=== PATIENT | male | born 1945 | race Caucasian/White ===

== ENCOUNTER 2019-12-03 16:44 | Emergency (ER) | payer MEDICARE, SELFPAY ==
[2019-12-03 16:44] VITALS: BP 163/97; PULSE 71; RESP 16; TEMP 36.2; O2SAT 98
[2019-12-03 16:45] VITALS: BP 163/97; PULSE 68; RESP 16; TEMP 36.2; O2SAT 99; BMI 26.1
--- NOTE | 2019-12-03 17:06 | EKG12_ITS ---
Test Reason : CP Blood Pressure : / mmHG Vent. Rate : 066 BPM Atrial Rate : 066 BPM P-R Int : 164 ms QRS Dur : 088 ms QT Int : 416 ms P-R-T Axes : 069 035 058 degrees QTc Int : 436 ms Sinus rhythm with occasional Premature ventricular complexes Otherwise normal ECG Confirmed by JUNIE COTTON, MARLEEN ([id number]), vice president compliance LIT VICENTE ([id number]) on 12/07/2019 2:45:34 PM Referred By: JENNIFER Confirmed By:EY ZAMAN MD
--- NOTE | 2019-12-03 17:13 | RAD_ITS ---
STUDY: X-RAY CHEST REASON FOR EXAM: Male, 74 years old. CHEST PAIN FOR 8 DAYS, INDIGESTION, C/O HYPERTENSION TECHNIQUE: Single AP portable view of the chest. COMPARISON: None. FINDINGS: The lungs are clear and expanded. There is no demonstrated pleural abnormality. Normal size heart. Normal mediastinum and micha. Normal visualized pulmonary arteries. Normal visualized aortic arch and descending thoracic aorta. Normal visualized thoracic spine. Normal visualized ribs, clavicles, and shoulders. There is no demonstrated abnormality of the visualized soft tissue structures of the upper abdomen. RAD/Chest 1 View (Portable) IMPRESSION: Normal x-ray examination of the chest. Electronically Signed: Jose Mcginnis MD at 17:28 EDT Tel , Service support ,
[2019-12-03 17:29] LABS: Absolute Lymphocyte Count 2.05 X10^3/uL (0.83-4.51); Absolute Neutrophil Count 5.7 X10^3/uL (2.0-7.7); Basophil# 0.04 X10^3/uL; Basophil% 0.4 % (0-1); Eosinophil# 0.35 X10^3/uL; Eosinophils% 3.9 % (0-5); Hematocrit 43.1 % (40-54); Hemoglobin 14.1 g/dL (13.0-16.5); Lymphocyte # 2.05 X10^3/ul (4.0); Lymphocyte % 22.8 % (19-41); Mean Corp Hgb Conc 32.7 g/dL (32-36); Mean Corpuscular Hgb 31.2 pg (27.0-32.0); Mean Corpuscular Volume 95.4 fL (80-94); Mean Platelet Vol. 9.3 fl (6.2-12.0); Monocyte# 0.86 X10^3/uL; Monocyte% 9.5 % (0-10); NRBC Flagged by Analyzer 0 % (0-5); Neutrophil # 5.66 X10^3/uL (2.7-7.7); Neutrophil % 62.8 % (47-70); Platelet Count 238 K/mm3 (150-450); RBC Distribution Width CV 13.1 % (11.6-14.6); RBC Distribution Width SD 45.9 fl (35.1-43.9); Red Blood Count 4.52 M/mm3 (4.6-6.2)
[2019-12-03] MEDS: Famotidine 200 MG/20 ML MDV 20 MG in 0.9% Normal Saline (Pres. free 8 ML 300 MG IV (17:30)
[2019-12-03 17:44] VITALS: BP 140/77; PULSE 60; RESP 21; O2SAT 96
[2019-12-03 17:48] LABS: Anion Gap 5 (5-15); BUN 18 mg/dL (7-18); BUN/Creat Ratio 14.5 RATIO (10-20); Calcium,Total 9.4 mg/dL (8.5-10.1); Chloride 102 mmol/L (98-107); Creatinine, Serum 1.24 mg/dL (0.70-1.30); EST Glomerular Filtration Rate 60 mL/min (>60); Est Glom Filt Rate - Afr Amer 73 mL/min (>60); Glucose 100 mg/dL (74-106); Potassium 3.8 mmol/L (3.5-5.1); Sodium Level 136 mmol/L (136-145)
[2019-12-03] MEDS: Mag Hydrox/Al Hydrox/Simeth 30 ML UDC PO (18:23)
--- NOTE | 2019-12-03 19:34 | ED.VIS.GEN ---
History of Present Illness Chief Complaint: Chest Pain Informant: Patient Onset: Days - 8 Narrative: Patient presents 8 days of indigestion symptoms. Waxing and waning. Is constant. Only mild with a 2. Today noted elevated blood pressures stomach 160s. He is on medications. Denies headache visual changes. Denies cough he denies nausea vomiting. Denies any urinary symptoms. No history of stress test. History of hypertension, mild hypercholesterolemia, on Wellbutrin to quit smoking. Prior similar symptoms: No Past Medical History - Allergies and Home Meds Allergies/Adverse Reactions: Allergies No Known Allergies Allergy (Verified 12/03/19 16:48) Primary Care Physician: Felton Benitez MD [Primary Care Provider] - 3-5 Days Smoking Status: Former smoker Review of Systems General: Denies: Chills, Fever, Sweats Eyes: Denies: Visual changes - bilaterally, Diplopia ENT: Denies: Rhinorrhea, Sore throat Cardiovascular: Reports: Chest pain. Denies: Palpitations Respiratory: Denies: Dyspnea, Cough, Dyspnea on exertion Gastrointestinal: Denies: Abdominal pain, Nausea, Vomiting, Diarrhea, Melena, Hematochezia Genitourinary: Denies: Dysuria, Hematuria, Frequency Musculoskeletal: Denies: Back pain, Extremity Pain Skin: Denies: Rash, Wounds Neurological: Denies: Headache, Weakness, Numbness Physical Exam Vital Signs/Narrative: Vital Signs Temp Pulse Resp BP Pulse Ox 12/03/19 17:44 60 21 H 140/77 H 96 12/03/19 16:45 97.1 F L 68 16 163/97 H 99 12/03/19 16:44 97.1 F L 71 16 163/97 H 98 Inital Vital Signs reviewed: Yes General: Well nourished, Well developed, No Acute Distress Head: Normocephalic, Atraumatic Eyes: Perrl, EOMI ENT: Moist mucous membranes, No rhinorrhea Neck: Supple, Nontender Cardiovascular: Regular rate, Regular rhythm, No murmurs Respiratory: No distress, CTA bilaterally, Chest nontender Abdomen: Soft, Nontender, Nondistended, Normal bowel sounds Back: Nontender, Normal Inspection Extremities: Nontender, No edema Skin: Normal color, No rash Neurological: Alert, Oriented x3, Cranial nerves II-XII grossly intact, Normal Strength, Normal Sensation Psychological: Normal affect, Normal Mood Diagnostic/Tx/Re-eval Clinical Impression(s) from Imaging Studies Chest X-Ray 12/03/19 17:13 IMPRESSION: Normal x-ray examination of the chest. Electronically Signed: Jose Mcginnis MD at 17:28 EDT Tel , Service support , Abnormal Lab Results 12/03/19 12/03/19 16:55 16:55 WBC 9.0 RBC 4.52 L Hgb 14.1 Hct 43.1 MCV 95.4 H MCH 31.2 MCHC 32.7 RDW Std Deviation 45.9 H RDW Coeff of Isha 13.1 Plt Count 238 MPV 9.3 Immature Gran % (Auto) 0.600 Neut % (Auto) 62.8 Lymph % (Auto) 22.8 Leake % (Auto) 9.5 Eos % (Auto) 3.9 Baso % (Auto) 0.4 Absolute Neuts (auto) 5.7 Absolute Lymphs (auto) 2.05 Nucleated RBC % 0 Sodium 136 Potassium 3.8 Chloride 102 Carbon Dioxide 29.0 Anion Gap 5 BUN 18 Creatinine 1.24 Estim Creat Clear Calc 49.80 Est GFR (MDRD) Af Amer 73 Est GFR (MDRD) Non-Af 60 BUN/Creatinine Ratio 14.5 Glucose 100 Calcium 9.4 Troponin I < 0.015 - EKG Initial EKG Interpretation: Sinus Rhythm - Sinus rate of 66, no ST or T wave changes. Occasional PVCs. - Medical Decision Making Patient EKG with intermittent PVCs. No acute changes. Cardiac work-up negative. With persistent symptoms for 8 days negative troponin less likely cardiac in nature. Was given GI cocktail with some improvement of symptoms. Blood pressure without intervention went down to 140s over 70s which is his typical from his report. He will be placed on a PPI. Discussed with patient follow-up with his PCP for outpatient testing and reevaluation his blood pressure. Signs and symptom discussed return. All questions were answered. ED Disposition - Plan for ED Patient: Disposition: Home or Assisted Living Diagnosis: Chest pain, Elevated blood pressure reading in office with diagnosis of hypertension Instructions: ED Chest Pain Atypical Unkn Cause Prescriptions: Omeprazole 40 mg PO DAILY #30 capsule. Prescription Printed Referrals: Felton Benitez MD [Primary Care Provider] - 3-5 Days Additional Instructions: BP 140/77 without intervention.
[2019-12-03 19:35] VITALS: BP 161/74; PULSE 56; RESP 15; O2SAT 98
== END 2019-12-03 19:48 | disposition home or self-care (01) ==
PROVIDERS: Emergency Provider Emergency Medicine; PCP Family Medicine
DX: R07.9 Chest pain, unspecified (principal); I10 Essential (primary) hypertension; E78.00 Pure hypercholesterolemia, unspecified; Z87.891 Personal history of nicotine dependence
CPT/HCPCS: 71045; 80048; 84484; 85025; 93005; 96365; 99285; A4216; J3490

== ENCOUNTER 2020-02-06 13:58 | Emergency (ER) | payer MEDICARE, SELFPAY ==
[2020-02-06 13:59] VITALS: BP 128/75; PULSE 81; RESP 16; TEMP 36.4; O2SAT 99; BMI 26.8
--- NOTE | 2020-02-06 14:18 | RAD_ITS ---
STUDY: X-RAY CHEST REASON FOR EXAM: Male, 74 years old. WEAKNESS, TIREDNESS TECHNIQUE: AP upright portable view. COMPARISON: 12/02/2018. FINDINGS: Equivocal minimal interstitial infiltrate in the left mid peripheral lung zone and in the right lower lobe. Oblique linear scarring in the left lower lobe. No confluent infiltrates. There is no demonstrated pleural abnormality. Normal size heart. Normal mediastinum and micha. Normal visualized pulmonary arteries. Normal visualized aortic arch and descending thoracic aorta. Normal visualized thoracic spine. Normal visualized ribs, clavicles, and shoulders. There is no demonstrated abnormality of the visualized soft tissue structures of the upper abdomen. RAD/Chest 1 View (Portable) IMPRESSION: Equivocal minimal interstitial infiltrate in the left midlung and in the right lower lobe. HRCT chest will help clarify if interstitial pneumonitis including Covid 19 is a clinical consideration. Electronically Signed: Boaz Flores MD at 15:27 EST , Service support ,
--- NOTE | 2020-02-06 14:18 | EKG12_ITS ---
Test Reason : FATIGUE Blood Pressure : / mmHG Vent. Rate : 060 BPM Atrial Rate : 060 BPM P-R Int : 158 ms QRS Dur : 086 ms QT Int : 418 ms P-R-T Axes : 059 019 048 degrees QTc Int : 418 ms Normal sinus rhythm Normal ECG Confirmed by GAEL COTTON, JOSIE ([id number]), international editorial producer LISA MILAN ([id number]) on 02/08/2020 1:28:37 PM Referred By: BB Confirmed By:JOSIE MAYO MD
--- NOTE | 2020-02-06 14:19 | ED.DCSUM_ITS ---
History of Present Illness Chief Complaint: Fatigue Informant: Patient Onset: Days - 4 Context: Gradual Onset Timing: Continuous Quality: fatigue, sleeping a lot Location: all over Current Severity: Moderate Maximum Severity: Moderate Worsened by: n/a Relieved by: n/a Associated Symptoms: none currently Narrative: Patient states for the last 4 days he has been very tired, sleeping a lot. He states he is up for an hour or 2 after sleeping and then he needs to go back to bed. He denies any other acute symptoms but states that he just got over bronchitis. This, in context of major surge of COVID-19 pandemic in this area and stay recently. He states he did not see anyone for that or get tested but his symptoms are better now. They consisted of nonproductive cough, rhinorrhea, mild sore throat. He had no dyspnea, fevers, chills, myalgias, headaches. No GI symptoms. Lives with his who did not get sick. She recently had an outpatient surgery and tested negative for Covid this past month while asymptomatic. He has been compliant with his medications and is not a diabetic. He denies any trouble speaking, trouble understanding others, confusion, or peripheral neurologic symptoms. He has been urinating a little less, but when he goes he has no trouble, but then admits that he has been drinking a lot less since he has been sleeping mostly. - Past Medical History (1) Hypertension Status: Chronic (2) Hyperlipidemia Status: Chronic Past Medical History - Allergies and Home Meds Allergies/Adverse Reactions: Allergies No Known Allergies Allergy (Verified 12/03/19 16:48) Primary Care Physician: Felton Benitez MD [Primary Care Provider] - Lives: Spouse/ Significant Other Smoking Status: Former smoker - Stopped smoking about 3 months ago and started Wellbutrin at that time for this reason Review of Systems General: Reports: Malaise. Denies: Chills, Fever, Sweats Eyes: Denies: Visual changes - bilaterally, Diplopia ENT: Denies: Bilateral ear pain, Rhinorrhea, Sore throat - And no oral pain currently Cardiovascular: Denies: Chest pain, Palpitations Respiratory: Denies: Dyspnea, Cough, Dyspnea on exertion Gastrointestinal: Denies: Abdominal pain, Nausea, Vomiting, Diarrhea, Melena, Hematochezia Genitourinary: Denies: Dysuria, Hematuria, Frequency Musculoskeletal: Denies: Myalgias, Neck pain, Back pain, Swelling, Extremity Pain Skin: Denies: Rash, Wounds Neurological: Denies: Headache, Weakness, Numbness Endocrine: Denies: Polyuria, Polydipsia, Heat intolerance, Cold intolerance Physical Exam Vital Signs/Narrative: Vital Signs Temp Pulse Resp BP Pulse Ox 02/06/20 13:59 97.6 F L 81 16 128/75 H 99 Inital Vital Signs reviewed: Yes General: Well nourished, Well developed, No Acute Distress Head: Normocephalic, Atraumatic Eyes: Perrl, EOMI ENT: Moist mucous membranes, No rhinorrhea, - - Dark discoloration posterior half of tongue, nontender Neck: Supple, Nontender, No lymphadenopathy Cardiovascular: Regular rate, Regular rhythm, No murmurs Respiratory: No distress, CTA bilaterally, Chest nontender Abdomen: Soft, Nontender, Nondistended, Normal bowel sounds Back: Nontender, Normal Inspection. Negative for: CVA tenderness Extremities: Nontender, No edema. Negative for: Calf Tenderness Skin: Normal color, No rash, No Trauma Neurological: Alert, Oriented x3, Cranial nerves II-XII grossly intact, Normal Strength, Normal Sensation Psychological: Normal affect, Normal Mood Diagnostic/Tx/Re-eval Impressions Chest X-Ray 02/06/20 14:18 IMPRESSION: Equivocal minimal interstitial infiltrate in the left midlung and in the right lower lobe. HRCT chest will help clarify if interstitial pneumonitis including Covid 19 is a clinical consideration. Electronically Signed: Boaz Flores MD at 15:27 EST , Service support , 02/06/20 14:18 Chest 1 View (Portable) [RAD] Stat 02/06/20 15:00 Mucosa - Nasopharyngeal SARS-CoV-2 Antigen (Rapid) - Final SARS-CoV-2 (COVID 19) Laboratory Results 02/06/20 02/06/20 02/06/20 14:24 14:50 14:50 WBC 6.1 RBC 4.22 L Hgb 13.1 Hct 40.1 MCV 95.0 H MCH 31.0 MCHC 32.7 RDW Std Deviation 47.5 H RDW Coeff of Isha 13.7 Plt Count 154 MPV 10.1 Immature Gran % (Auto) 0.800 Neut % (Auto) 67.5 Lymph % (Auto) 18.8 L [place] % (Auto) 12.4 H Eos % (Auto) 0.3 Baso % (Auto) 0.2 Absolute Neuts (auto) 4.1 Absolute Lymphs (auto) 1.14 Nucleated RBC % 0 Sodium 136 Potassium 3.5 Chloride 100 Carbon Dioxide 31.0 Anion Gap 5 BUN 21 H Creatinine 1.26 Estim Creat Clear Calc 49.01 Est GFR (MDRD) Af Amer 72 Est GFR (MDRD) Non-Af 59 L BUN/Creatinine Ratio 16.7 Glucose 113 H Calcium 8.1 L Total Bilirubin 0.40 AST 33 ALT 39 Alkaline Phosphatase 66 Troponin I 0.030 Total Protein 7.3 Albumin 3.1 L Globulin 4.2 Albumin/Globulin Ratio 0.7 L TSH 0.79 COVID-19 ([facility]) Cancelled Microbiology 02/06/20 15:00 Mucosa - Nasopharyngeal SARS-CoV-2 Antigen (Rapid) - Final + SARS-CoV-2 (COVID 19) - Rhythm Strip Rhythm Strip: Sinus Rhythm Rate: 60 Ectopy: None - EKG Initial EKG Interpretation: Sinus Rhythm, No Acute Injury Pattern - Medical Decision Making Patient tested positive for Covid. States he started having cough 5 days ago but it really has not been bad in the past 2 days when I asked him to clarify the timing. His x-ray shows suspicion for early infiltrates in the bases. Given that he tested positive for Covid, I do not think he needs a CT of the chest to further discern the details. Furthermore, his vital signs are normal and he is not hypoxic, even with ambulation around the room. He is okay going home and getting around all right. The hospital has recently received doses of COVID-19 monoclonal antibody for outpatient infusion, the first infusions are scheduled to start 2 days from now on Saturday. He meets criteria, therefore is referred and he is interested in that. I will also send him home on a Z-Santiago to cover for the possibility of bacterial superinfection. He is comfortable with this overall plan and we discussed reasons to return. ED Disposition - Plan for ED Patient: Disposition: Home or Assisted Living Diagnosis: Pneumonia due to COVID-19 virus Instructions: Coronavirus Disease 2019 (COVID-19): Overview, Coronavirus Disease 2019 (COVID-19): Caring for Yourself or Others Referrals: Felton Benitez MD [Primary Care Provider] - Additional Instructions: See attached COVID-19 monoclonal antibody instructions.
[2020-02-06] MEDS: 0.9% Normal Saline 1,000 ML 150 ML IV (14:59)
[2020-02-06 15:14] VITALS: BP 125/67; PULSE 62; RESP 14; TEMP 36.6; O2SAT 98
[2020-02-06 15:30] LABS: Absolute Lymphocyte Count 1.14 X10^3/uL (0.83-4.51); Absolute Neutrophil Count 4.1 X10^3/uL (2.0-7.7); Basophil# 0.01 X10^3/uL; Basophil% 0.2 % (0-1); Eosinophil# 0.02 X10^3/uL; Eosinophils% 0.3 % (0-5); Hematocrit 40.1 % (40-54); Hemoglobin 13.1 g/dL (13.0-16.5); Lymphocyte # 1.14 X10^3/ul (4.0); Lymphocyte % 18.8 % (19-41); Mean Corp Hgb Conc 32.7 g/dL (32-36); Mean Platelet Vol. 10.1 fl (6.2-12.0); Monocyte# 0.75 X10^3/uL; Monocyte% 12.4 % (0-10); NRBC Flagged by Analyzer 0 % (0-5); Neutrophil % 67.5 % (47-70); Platelet Count 154 K/mm3 (150-450); RBC Distribution Width CV 13.7 % (11.6-14.6); RBC Distribution Width SD 47.5 fl (35.1-43.9); Red Blood Count 4.22 M/mm3 (4.6-6.2); White Blood Count 6.1 K/mm3 (4.4-11.0)
[2020-02-06 15:38] LABS: ALB/GLOB Ratio 0.7 RATIO (0.9-2.4); AST(SGOT) 33 U/L (15-37); Alanine Aminotransfer ALT/SGPT 39 U/L (16-61); Albumin, Serum 3.1 g/dL (3.2-5.0); Alkaline Phosphatase 66 U/L (45-117); Anion Gap 5 (5-15); BUN 21 mg/dL (7-18); BUN/Creat Ratio 16.7 RATIO (10-20); Calcium,Total 8.1 mg/dL (8.5-10.1); Chloride 100 mmol/L (98-107); Creatinine, Serum 1.26 mg/dL (0.70-1.30); EST Glomerular Filtration Rate 59 mL/min (>60); Est Glom Filt Rate - Afr Amer 72 mL/min (>60); Estimated Creatinine Clearance 49.01 ml/min; Globulin 4.2 g/dL (2.2-4.2); Glucose 113 mg/dL (74-106); Potassium 3.5 mmol/L (3.5-5.1); Protein, Total 7.3 g/dL (6.4-8.2); Sodium Level 136 mmol/L (136-145); Thyroid Stim Hormone (TSH) 0.79 uIU/mL (0.358-3.74)
[2020-02-06 16:17] VITALS: BP 127/70; PULSE 54; PULSE 55; RESP 18; TEMP 36.6; O2SAT 95
[2020-02-06 16:21] LABS: Mucous, Urine 0 SEEN /hpf (<or=2+); Red Blood Cells-Urine 0 SEEN /hpf (0-5); Squamous Epithelial Cells - UA 0 SEEN /hpf (0-5); White Blood Cells 0 SEEN /hpf (0-5)
[2020-02-06 16:22] LABS: Color, Urine Yellow (Yellow); Glucose, Dipstick Normal (Normal); Ketone-Dipstick Negative (Negative); Leukocyte Esterase-Dipstick Negative /ul (Negative); Nitrite-Dipstick Negative (Negative); Occult Blood-Urine 10 /ul (Negative); Protein-Dipstick 15 mg/dl (Negative); Specific Gravity, Urine 1.015 (1.002-1.030); Urine Bilirubin Dipstick Negative (Negative); Urine Clarity Clear (Clear); Urine Urobilinogen Normal (Normal)
[2020-02-06 16:36] LABS: Bacteria RARE /hpf (None Seen)
[2020-02-06 17:08] VITALS: BP 129/68; PULSE 59; RESP 15; TEMP 36.4; O2SAT 96
== END 2020-02-06 17:18 | disposition home or self-care (01) ==
PROVIDERS: Emergency Provider Emergency Medicine; PCP Family Medicine
DX: J12.89 Other viral pneumonia (principal); U07.1 COVID-19; E78.5 Hyperlipidemia, unspecified; I10 Essential (primary) hypertension; Z87.891 Personal history of nicotine dependence
CPT/HCPCS: 71045; 80053; 81001; 84443; 84484; 85025; 87426; 93005; 99285

== ENCOUNTER 2020-02-09 12:06 | Outpatient (CLI) | payer MEDICARE, SELFPAY ==
[2020-02-09 12:25] VITALS: BP 132/61; PULSE 67; RESP 28; TEMP 37.2; O2SAT 95; BMI 26.0
[2020-02-09 13:19] VITALS: BP 103/55; PULSE 59; RESP 24; TEMP 37.6; O2SAT 96
[2020-02-09 13:49] VITALS: BP 130/66; PULSE 67; RESP 20; TEMP 37.4; O2SAT 95
[2020-02-09 14:19] VITALS: BP 140/59; PULSE 94; RESP 20; TEMP 37.7; O2SAT 97
[2020-02-09 14:50] VITALS: BP 120/63; PULSE 71; RESP 20; TEMP 38.1; O2SAT 96
== END 2020-02-09 15:05 | disposition home or self-care (01) ==
LOC: MS2OUT 12:07 → MS2 12:10
PROVIDERS: PCP Family Medicine; Referring Provider Nurse Practitioner Acute Care; Visit Provider Nurse Practitioner Acute Care
DX: U07.1 COVID-19 (principal)
CPT/HCPCS: 96365; J7050; M0239; Q0239

== ENCOUNTER 2020-02-11 12:23 | Inpatient (IN) | payer MEDICARE, SELFPAY ==
[2020-02-11] VITALS (12 sets, daily range): BP systolic 121–146; BP diastolic 65–95; PULSE 54–72; RESP 16–30; TEMP 36.2–37.1; O2SAT 87–96; BMI 25.4; BMI 25.2
--- NOTE | 2020-02-11 12:38 | EKG12_ITS ---
Test Reason : SOB Blood Pressure : / mmHG Vent. Rate : 062 BPM Atrial Rate : 062 BPM P-R Int : 158 ms QRS Dur : 090 ms QT Int : 464 ms P-R-T Axes : 065 039 261 degrees QTc Int : 470 ms Normal sinus rhythm Nonspecific T wave abnormality Abnormal ECG Confirmed by LILLIANA COTTON, BERE ([id number]), digital editor LIT VICENTE ([id number]) on 02/12/2020 2:12:06 PM Referred By: HECTOR Confirmed By:BERE TIJERINA MD
--- NOTE | 2020-02-11 13:07 | ED.VIS.GEN ---
History of Present Illness Chief Complaint: Shortness of Breath Informant: Patient Narrative: Patient is a 74-year-old male with a past medical history of hypertension, hyperlipidemia who presents to the emergency department for shortness of breath and hypoxia. He was diagnosed with coronavirus approximately 2 weeks ago. He states he does have a home pulse oximeter which has been reading in the low to mid 80s since yesterday. Exerting himself does make him feel winded. No associated chest pain. No nausea/vomiting or diarrhea. He has been coughing. He denies any fevers or chills. No headache. No leg swelling or calf pain. He states he was put on antibiotic at the initial onset of symptoms otherwise has not done any other treatment. He has a former smoking history and quit approximately 12 years ago. Past Medical History - Allergies and Home Meds Allergies/Adverse Reactions: Allergies No Known Allergies Allergy (Verified 02/11/20 12:25) Prior records reviewed: Yes Smoking Status: Former smoker Review of Systems All systems negative except as indicated General: Denies: Chills, Fever, Sweats Eyes: Denies: Visual changes - bilaterally, Diplopia ENT: Denies: Rhinorrhea, Sore throat Cardiovascular: Denies: Chest pain, Palpitations Respiratory: Reports: Dyspnea, Cough, Dyspnea on exertion. Denies: Sputum Gastrointestinal: Denies: Abdominal pain, Nausea, Vomiting, Diarrhea Genitourinary: Denies: Dysuria, Hematuria, Frequency Musculoskeletal: Denies: Back pain, Extremity Pain Skin: Denies: Rash, Wounds Neurological: Denies: Headache, Weakness, Numbness Physical Exam Vital Signs/Narrative: Vital Signs Temp Pulse Resp BP Pulse Ox 02/11/20 12:23 97.2 F L 60 30 H 121/95 H 87 General: Well nourished, Well developed, No Acute Distress Head: Normocephalic, Atraumatic Eyes: Perrl, EOMI ENT: Moist mucous membranes, No rhinorrhea Neck: Supple, Nontender Cardiovascular: Regular rate, Regular rhythm, No murmurs Respiratory: No distress, CTA bilaterally, Chest nontender Abdomen: Soft, Nontender, Nondistended, Normal bowel sounds Back: Nontender, Normal Inspection Extremities: Nontender, No edema. Negative for: Calf Tenderness Skin: Normal color, No rash Neurological: Alert, Oriented x3, Cranial nerves II-XII grossly intact, Normal Strength, Normal Sensation Psychological: Normal affect, Normal Mood Diagnostic/Tx/Re-eval Chest X-Ray - ED: - - Single view chest x-ray interpreted by myself. He has patchy opacifications throughout lung bhagat bilaterally. Normal cardiac silhouette. Normal mediastinum. Agree with radiologist interpretation. - EKG Initial EKG Interpretation: - - Rate of 62 bpm normal sinus rhythm. Normal intervals. Normal axis. No significant ST elevations or depressions. No T wave abnormalities. There is baseline artifact present. - Medical Decision Making Patient presents to the ED for shortness of breath with exerting himself. He is coronavirus positive. He is satting 87% on room air during my examination but does not appear in acute distress. EKG, chest x-ray basic lab work being obtained. Patient's lab work did not reveal any significant acute abnormality. Chest x-ray significant for patchy consolidations consistent with coronavirus. D-dimer was requested by hospitalist and was elevated. That time CTA of the chest was performed. This did not reveal any evidence of pulmonary embolism. Given the fact he gets hypoxic especially when ambulating will bring him to the hospital for further evaluation and management. He understands and is agreeable this plan. He is given a dose of Decadron. He otherwise has been stable throughout ED stay. ED Disposition - Plan for ED Patient: Disposition: Acute Care Hospital [facility] Diagnosis: Pneumonia due to COVID-19 virus, Hypoxia
[2020-02-11 13:08] LABS: Absolute Lymphocyte Count 0.94 X10^3/uL (0.83-4.51); Absolute Neutrophil Count 7.3 X10^3/uL (2.0-7.7); Basophil# 0.02 X10^3/uL; Basophil% 0.2 % (0-1); Eosinophil# 0.02 X10^3/uL; Eosinophils% 0.2 % (0-5); Hematocrit 38.1 % (40-54); Hemoglobin 12.6 g/dL (13.0-16.5); Lymphocyte # 0.94 X10^3/ul (4.0); Lymphocyte % 10.6 % (19-41); Mean Corp Hgb Conc 33.1 g/dL (32-36); Mean Corpuscular Hgb 30.7 pg (27.0-32.0); Mean Corpuscular Volume 92.9 fL (80-94); Mean Platelet Vol. 9.7 fl (6.2-12.0); Monocyte# 0.56 X10^3/uL; Monocyte% 6.3 % (0-10); NRBC Flagged by Analyzer 0 % (0-5); Neutrophil # 7.26 X10^3/uL (2.7-7.7); Neutrophil % 81.9 % (47-70); Platelet Count 213 K/mm3 (150-450); RBC Distribution Width CV 13.7 % (11.6-14.6); RBC Distribution Width SD 46.7 fl (35.1-43.9); White Blood Count 8.9 K/mm3 (4.4-11.0)
--- NOTE | 2020-02-11 13:20 | RAD_ITS ---
STUDY: X-RAY CHEST REASON FOR EXAM: Male, 74 years old. HYPOXIA, COVID + TECHNIQUE: Single AP portable view of the chest. COMPARISON: Comparison is made with prior study dated 02/06/2020. FINDINGS: EKG electrodes are seen. There is evidence of new patchy infiltrates in the peripheral distribution preferentially involving both lungs worse in the right upper lobe. There is no demonstrated pleural abnormality. Normal size heart. Normal mediastinum and micha. Normal visualized pulmonary arteries. There is atherosclerotic tortuosity of the aortic arch and descending thoracic aorta. Normal visualized thoracic spine. Normal visualized ribs, clavicles, and shoulders. There is no demonstrated abnormality of the visualized soft tissue structures of the upper abdomen. RAD/Chest 1 View (Portable) IMPRESSION: New bilateral pulmonary infiltrates in a preferential peripheral distribution. Follow-up is recommended. Electronically Signed: Richar Parra, at 13:34 EST , Service support ,
[2020-02-11 13:25] LABS: AST(SGOT) 59 U/L (15-37); Alanine Aminotransfer ALT/SGPT 36 U/L (16-61); Albumin, Serum 2.5 g/dL (3.2-5.0); Alkaline Phosphatase 62 U/L (45-117); Anion Gap 6 (5-15); BUN 23 mg/dL (7-18); BUN/Creat Ratio 20.5 RATIO (10-20); Bilirubin, Direct 0.22 mg/dL (0.00-0.30); Calcium,Total 8.1 mg/dL (8.5-10.1); Chloride 101 mmol/L (98-107); Creatinine, Serum 1.12 mg/dL (0.70-1.30); EST Glomerular Filtration Rate 68 mL/min (>60); Est Glom Filt Rate - Afr Amer 82 mL/min (>60); Estimated Creatinine Clearance 55.13 ml/min; Globulin 4.8 g/dL (2.2-4.2); Glucose 94 mg/dL (74-106); Potassium 2.8 mmol/L (3.5-5.1); Protein, Total 7.3 g/dL (6.4-8.2); Sodium Level 137 mmol/L (136-145)
[2020-02-11 13:44] LABS: Magnesium 2.3 mg/dL (1.6-2.6)
--- NOTE | 2020-02-11 14:46 | PCM.HP.STD ---
Problem List (1) Hypertension Status: Chronic Qualifiers: Hypertension type: essential hypertension Qualified Code(s): I10 - Essential (primary) hypertension (2) Hyperlipidemia Status: Chronic Qualifiers: Hyperlipidemia type: unspecified Qualified Code(s): E78.5 - Hyperlipidemia, unspecified (3) Pneumonia due to COVID-19 virus Status: Acute (4) Hypoxia Status: Acute History of Present Illness Date of Admission: 02/11/20 Chief Complaint: SOB - worsening over 1 day The patient is a 74 year old M with past medical history of hypertension, hyperlipidemia who comes in with progressive shortness of breath and low reading on his pulse oximeter noted today. Patient stated that his symptoms started around 02/01/20. He was seen in the ED on 02/06/20 and tested positive with a rapid antigen. He was seen in the outpatient on 02/08/20 and received monoclonal antibody infusion. He however became more short of breath over the last couple of days and he noted his pulse ox was slightly in the 80s. He came to the emergency room at the urging of his family. He denied any chest pain or dizziness or palpitations or fever or chills. His vital signs ED showed temperature of 97.2F, heart rate 60, blood pressure 121/95, respiratory rate was 30, SPO2 was 87% on room air, this improved to 94% on 2 L of oxygen. WBC count 8.9, hemoglobin 12.6, platelet count was 213, D-dimer was 1.06, potassium was 2.8, sodium 137, chloride 101, bicarbonate 30, BUN 23, creatinine 1.12, magnesium is 2.2, LFTs unremarkable, procalcitonin 0.32. Past Medical History Past Medical History (Chronic Problems): Chronic Problems Hypertension (Chronic) Hyperlipidemia (Chronic) Allergies No Known Allergies Allergy (Verified 02/11/20 12:25) Home Medications: Ambulatory Orders Medication Instructions Recorded Losartan/Hydrochlorothiazide 1 tab PO DAILY 12/03/19 [Losartan-Hctz 100-25 mg Tab] [place]-3 Acid Ethyl Esters 1 gm PO TID 12/03/19 Rosuvastatin Calcium 20 mg PO QHS 12/03/19 buPROPion SR [Wellbutrin SR (150mg 150 mg PO BID 12/03/19 tablets)] Ascorbic Acid [Vitamin C] 500 mg PO DAILY 02/11/20 Cholecalciferol (Vitamin D3) 1,000 unit PO DAILY 02/11/20 [Vitamin D3] Vitamin E 400 unit PO DAILY 02/11/20 Surgical History: herniorrhaphy Psychiatric History: Anxiety, Depression Lives: Spouse/ Significant Other Smoking Status: Former smoker Tobacco Use: Non-smoker Alcohol: None Drugs: None - *Family History Maternal History Items: Hypertension Paternal History Items: - - arthritis Review of Systems Constitutional: Reports: Malaise, Weakness, Fatigue. Denies: Anorexia, Chills, Fever, Weight Change Eyes: Denies: Blurred vision, Cataracts, Conjunctivae Inflammation, Pain, Redness, Vision Change HEENT: Denies: Difficulty Hearing, Difficulty Swallowing, Head Aches, Hearing Changes, Sinus Congestion, Sinus Drainage Cardiovascular: Reports: Light Headedness. Denies: Chest Pain, Claudication, Orthopnea, Palpitations, Paroxysmal Noc. Dyspnea Respiratory: Reports: Cough, Shortness of Breath, Shortness of breath at rest, Shortness of breath upon exertion. Denies: Hemoptysis, Sputum production Gastrointestinal: Denies: Abdominal Pain, Constipation, Hematemesis, Hematochezia, Nausea, Vomiting Genitourinary: Denies: Dysuria, Frequency, Incontinence, Nocturia Musculoskeletal: Denies: Joint Pain, Joint stiffness, Joint swelling, Joint Tenderness Skin: Denies: Pruritis, Rash, Wounds Neurological: Denies: Difficulty swallowing, Focal weakness, Numbness, Tingling Psychiatric: Denies: Anxiety, Depression, Homicidal Ideations, Suicidal Ideations Hematologic/ Lymphatic: Denies: Easy Bruising, Easy Bleeding VTE Information - Inpt Only VTE Present on Admission: No VTE Pharm Prophylaxis ordered?: Yes Patient Problems: Active and Suspected Problems Pneumonia due to COVID-19 virus (Acute) Hypoxia (Acute) - Physical Exam Vitals/I&O's: Vital Signs Temp Pulse Resp BP Pulse Ox 97.2 F L 60 20 H 136/76 H 95 02/11/20 12:23 02/11/20 13:54 02/11/20 13:54 02/11/20 13:54 02/11/20 13:54 Oxygen Flow Rate (L/min) 2.5 Oxygen Delivery Method Nasal Cannula Weight: 76.1 kg Body Mass Index (BMI) 25.4 General: Alert, Oriented x3, Cooperative, No apparent distress, - - on 2L oxygen HEENT: Atraumatic, PERRLA, EOMI, Normocephalic Oral: Moist Mucosa Neck: Supple Lungs: Diminished Cardiovascular: Regular rate, Regular Rhythm, Normal S1, Normal S2, No murmurs Abdomen: Bowel Sounds Present, Soft, Non Tender, Non-Distended, No Hepato-splenomegaly Extremities: No edema Skin: No rashes Musculoskeletal: No Tenderness to Palpation of Joints or Extremities Lymphatic: No Cervical, Supraclavicular, or Inguinal Adenopathy Neurological: Cranial nerves II-XII grossly intact, Neuro grossly intact Psych/Mental Status: Normal Affect, Appropriate Laboratory Results 02/11/20 13:00: WBC 8.9, RBC 4.10 L, Hgb 12.6 L, Hct 38.1 L, MCV 92.9, MCH 30.7, MCHC 33.1, RDW Std Deviation 46.7 H, RDW Coeff of Isha 13.7, Plt Count 213, MPV 9.7, Immature Gran % (Auto) 0.800, Neut % (Auto) 81.9 H, Lymph % (Auto) 10.6 L, [place] % (Auto) 6.3, Eos % (Auto) 0.2, Baso % (Auto) 0.2, Absolute Neuts (auto) 7.3, Absolute Lymphs (auto) 0.94, Nucleated RBC % 0 02/11/20 13:00: Sodium 137, Potassium 2.8 L, Chloride 101, Carbon Dioxide 30.0, Anion Gap 6, BUN 23 H, Creatinine 1.12, Estim Creat Clear Calc 55.13, Est GFR (MDRD) Af Amer 82, Est GFR (MDRD) Non-Af 68, BUN/Creatinine Ratio 20.5 H, Glucose 94, Calcium 8.1 L, Total Bilirubin 0.50, Direct Bilirubin 0.22, AST 59 H, ALT 36, Alkaline Phosphatase 62, Troponin I 0.034, Total Protein 7.3, Albumin 2.5 L, Globulin 4.8 H 02/11/20 13:00: Magnesium 2.3 Current Medications Dexamethasone (Dexamethasone 4 Mg Tablet) 6 mg PO DAILY@0800 [facility] Enoxaparin Sodium (Enoxaparin 30 Mg/0.3 Ml Syringe) 30 mg SC BID SEFERINO Remdesivir 200 mg/ Sodium (Chloride) 250 mls @ 125 mls/hr IV X1 ONE Stop: 02/11/20 16:44 Remdesivir 100 mg/ Sodium (Chloride) 250 mls @ 125 mls/hr IV DAILY SEFERINO Stop: 02/15/20 11:59 Assessment/Plan All Active Problems Pneumonia due to COVID-19 virus (Acute) Hypoxia (Acute) 1. Acute hypoxic respiratory insufficiency secondary to acute COVID-19 pneumonia Continue with breathing treatments, po steroids, encourage use of incentive spirometer. Wean off oxygen for SPO2 more than 94% 2. Acute COVID-19 pneumonia with hypoxia Patient received monoclonal antibody therapy on 02/08/20 States that his symptoms started probably around 02/01/20 Will continue patient on oral dexamethasone, Will also give him IV remdesivir ID consult to determine if remdesivir should be continued in the light of recent monoclonal antibody therapy 3. Elevated D-dimer, in the context of acute COVID-19 Will start patient on therapeutic Lovenox Patient may need CT of the chest to rule out PE 4. Hypokalemia, K secondary to hydrochlorothiazide use, replaced, check in a.m. Hold hydrochlorothiazide 5. Hypertension, controlled, continue on losartan, hold hydrochlorothiazide 6. Hyperlipidemia, continue on rosuvastatin 7. Anxiety/depression, continue on Wellbutrin 8. DVT PPx- On therapeutic Lovenox In[facility] E&M: [id number]
[2020-02-11] MEDS: dexAMETHasone 10 MG/ML Vial IV (14:54)
[2020-02-11 15:12] LABS: D-Dimer Quantitative (DVT/PE) 1.06 FEU/ug/m (0.27-0.49)
--- NOTE | 2020-02-11 15:15 | CT_ITS ---
STUDY: CTA CHEST REASON FOR EXAM: Male, 74 years old. +COVID, ELEV D DIMER, SOB, HTN, EVAL FOR PE RADIATION DOSAGE (If Supplied By Facility): CTDIvol = ( 7 ) mGy, DLP = ( 307.18 ) mGycm TECHNIQUE: The examination was performed with the intravenous administration of IV 75mL Isovue-370. Post-processing of the angiographic images was performed, with multiplanar reformation and 3D reconstruction. Individualized dose optimization techniques were used for this CT. COMPARISON: None. FINDINGS: Normal enhancement of the main pulmonary artery and right and left pulmonary arteries. Normal enhancement of the bilateral peripheral pulmonary arteries. There is no demonstrated pulmonary embolism. Normal thoracic aorta and visualized great vessels. There is no demonstrated aortic dissection. Normal heart and pericardium. Normal mediastinum. Normal hilar regions. Normal visualized trachea and bronchi. The lungs are well expanded. Bilateral patchy pulmonary infiltrates. 6 mm right lower lobe peripheral nodule. 3-4 month follow-up is recommended. Normal pleura. Normal chest wall structures. Normal osseous structures. Normal visualized upper abdomen. CT/CTA Chest W/WO Contrast IMPRESSION: No demonstrated pulmonary embolism or arterial dissection. Bilateral patchy pulmonary infiltrates. Right lower lobe nonspecific peripheral nodule. Electronically Signed: Tyron Barton DO at 16:28 EST Tel [phone], Service support ,
[2020-02-11 15:58] LABS: Procalcitonin 0.32 ng/mL (0.00-0.09)
[2020-02-11] MEDS: 0.9% Saline Lock 10 ML Syringe IV (17:17)
[2020-02-11 17:49] LABS: Magnesium 2.2 mg/dL (1.6-2.6)
[2020-02-11] MEDS: 0.9% Normal Saline 1,000 ML 75 ML IV (19:17)
[2020-02-11] MEDS: Enoxaparin 30 MG/0.3 ML Syringe SC (20:23)
[2020-02-11] MEDS: buPROPion (SR) 150 MG Tablet.SA PO (21:56)
[2020-02-11] MEDS: NYSTATIN 500,000 UNIT/5 ML UDC 500000 UNIT PO (21:57)
[2020-02-11] MEDS: Atorvastatin Calcium 40 MG Tablet PO (21:57)
[2020-02-12] VITALS (11 sets, daily range): BP systolic 135–147; BP diastolic 69–71; PULSE 51–73; RESP 18–20; TEMP 36.2–37; O2SAT 91–96
[2020-02-12 06:44] LABS: Absolute Lymphocyte Count 0.65 X10^3/uL (0.83-4.51); Absolute Neutrophil Count 6.2 X10^3/uL (2.0-7.7); Basophil# 0.01 X10^3/uL; Basophil% 0.1 % (0-1); Hematocrit 37.3 % (40-54); Hemoglobin 12.1 g/dL (13.0-16.5); Lymphocyte # 0.65 X10^3/ul (4.0); Lymphocyte % 8.9 % (19-41); Mean Corp Hgb Conc 32.4 g/dL (32-36); Mean Corpuscular Hgb 30.2 pg (27.0-32.0); Mean Platelet Vol. 10.2 fl (6.2-12.0); Monocyte# 0.39 X10^3/uL; Monocyte% 5.3 % (0-10); NRBC Flagged by Analyzer 0 % (0-5); Neutrophil # 6.16 X10^3/uL (2.7-7.7); Neutrophil % 84.6 % (47-70); POSITIVE MORPHOLOGY YES; Platelet Count 244 K/mm3 (150-450); RBC Distribution Width CV 13.4 % (11.6-14.6); RBC Distribution Width SD 46.3 fl (35.1-43.9); Red Blood Count 4.01 M/mm3 (4.6-6.2); White Blood Count 7.3 K/mm3 (4.4-11.0)
[2020-02-12 06:51] LABS: Differential Indicated SCAN CRITERIA MET
[2020-02-12 07:09] LABS: Atypical Lymphocyte 2+ %; Differential Comment SCANNED
[2020-02-12 07:11] LABS: ALB/GLOB Ratio 0.6 RATIO (0.9-2.4); AST(SGOT) 56 U/L (15-37); Alanine Aminotransfer ALT/SGPT 40 U/L (16-61); Albumin, Serum 2.4 g/dL (3.2-5.0); Alkaline Phosphatase 64 U/L (45-117); Anion Gap 7 (5-15); BUN 22 mg/dL (7-18); BUN/Creat Ratio 26.3 RATIO (10-20); Calcium,Total 8.3 mg/dL (8.5-10.1); Chloride 105 mmol/L (98-107); Creatinine, Serum 0.84 mg/dL (0.70-1.30); EST Glomerular Filtration Rate 95 mL/min (>60); Est Glom Filt Rate - Afr Amer 115 mL/min (>60); Estimated Creatinine Clearance 73.51 ml/min; Globulin 4.1 g/dL (2.2-4.2); Glucose 124 mg/dL (74-106); Potassium 3.8 mmol/L (3.5-5.1); Protein, Total 6.5 g/dL (6.4-8.2); Sodium Level 139 mmol/L (136-145)
[2020-02-12] MEDS: Losartan Potassium 100 MG Tablet PO (09:21)
[2020-02-12] MEDS: Omega-3 Acid Ethyl Esters 1 GM Capsule PO ×3 (09:21→17:30)
[2020-02-12] MEDS: Enoxaparin 80 MG/0.8 ML Syringe 70 MG SC (09:21)
[2020-02-12] MEDS: dexAMETHasone 4 MG Tablet 6 MG PO (09:21)
[2020-02-12] MEDS: Ascorbic Acid 500 MG Tablet PO (09:22)
[2020-02-12] MEDS: buPROPion (SR) 150 MG Tablet.SA PO ×2 (09:22→20:48)
[2020-02-12] MEDS: NYSTATIN 500,000 UNIT/5 ML UDC 500000 UNIT PO ×4 (09:22→20:48)
--- NOTE | 2020-02-12 11:23 | PCM.PN.HOSP ---
Patient Problems: Active and Suspected Problems Pneumonia due to COVID-19 virus (Acute) Hypoxia (Acute) Subjective: No issues overnight. Doing okay. Maintaining his oxygen sats on 3 L nasal cannula Vitals/I&O's: Vital Signs Temp Pulse Resp BP Pulse Ox 98.6 F 51 L 18 147/71 H 94 02/12/20 09:19 02/12/20 10:06 02/12/20 09:19 02/12/20 09:19 02/12/20 09:19 Oxygen Flow Rate (L/min) 3 Oxygen Delivery Method Nasal Cannula Weight: 165 lb 9.074 oz Body Mass Index (BMI) 25.2 Intake and Output for Last 24 Hours 02/10/20 02/11/20 02/12/20 23:59 23:59 23:59 Intake Total 526.25 / 526.25 Output Total 225 / 225 125 / 125 Balance 301.25 / 301.25 -125 / -125 General: Alert, Oriented x3, Cooperative, No apparent distress HEENT: Atraumatic, PERRLA, EOMI, Normocephalic Oral: Moist Mucosa Neck: Supple, No JVD Lungs: Normal air movement, No rhonchi, No wheeze, No rales, Diminished Cardiovascular: Regular rate, Regular Rhythm, Normal S1, Normal S2, No murmurs Abdomen: Soft, Non Tender, Non-Distended, No Hepato-splenomegaly Extremities: No edema, Capillary Refill Less than 3 Seconds Skin: No rashes, No breakdown Neurological: Neuro grossly intact, Sensory exam intact to light touch and pain Psych/Mental Status: Normal Affect, Appropriate Laboratory Results 02/11/20 13:00: WBC 8.9, RBC 4.10 L, Hgb 12.6 L, Hct 38.1 L, MCV 92.9, MCH 30.7, MCHC 33.1, RDW Std Deviation 46.7 H, RDW Coeff of Isha 13.7, Plt Count 213, MPV 9.7, Immature Gran % (Auto) 0.800, Neut % (Auto) 81.9 H, Lymph % (Auto) 10.6 L, [place] % (Auto) 6.3, Eos % (Auto) 0.2, Baso % (Auto) 0.2, Absolute Neuts (auto) 7.3, Absolute Lymphs (auto) 0.94, Nucleated RBC % 0 02/11/20 13:00: Sodium 137, Potassium 2.8 L, Chloride 101, Carbon Dioxide 30.0, Anion Gap 6, BUN 23 H, Creatinine 1.12, Estim Creat Clear Calc 55.13, Est GFR (MDRD) Af Amer 82, Est GFR (MDRD) Non-Af 68, BUN/Creatinine Ratio 20.5 H, Glucose 94, Calcium 8.1 L, Total Bilirubin 0.50, Direct Bilirubin 0.22, AST 59 H, ALT 36, Alkaline Phosphatase 62, Troponin I 0.034, Total Protein 7.3, Albumin 2.5 L, Globulin 4.8 H 02/11/20 13:00: Magnesium 2.3 02/11/20 13:00: D-Dimer Quant (PE/DVT) 1.06 H* 02/11/20 15:28: Procalcitonin 0.32 H 02/11/20 15:28: Magnesium 2.2 02/12/20 05:50: WBC 7.3, RBC 4.01 L, Hgb 12.1 L, Hct 37.3 L, MCV 93.0, MCH 30.2, MCHC 32.4, RDW Std Deviation 46.3 H, RDW Coeff of Isha 13.4, Plt Count 244, MPV 10.2, Immature Gran % (Auto) 1.100 H, Neut % (Auto) 84.6 H, Lymph % (Auto) 8.9 L, [place] % (Auto) 5.3, Eos % (Auto) 0.0, Baso % (Auto) 0.1, Absolute Neuts (auto) 6.2, Absolute Lymphs (auto) 0.65 L, Nucleated RBC % 0, Differential Comment SCANNED, Atypical Lymphocytes 2+ 02/12/20 05:50: Sodium 139, Potassium 3.8, Chloride 105, Carbon Dioxide 27.0, Anion Gap 7, BUN 22 H, Creatinine 0.84, Estim Creat Clear Calc 73.51, Est GFR (MDRD) Af Amer 115, Est GFR (MDRD) Non-Af 95, BUN/Creatinine Ratio 26.3 H, Glucose 124 H, Calcium 8.3 L, Total Bilirubin 0.50, AST 56 H, ALT 40, Alkaline Phosphatase 64, Total Protein 6.5, Albumin 2.4 L, Globulin 4.1, Albumin/Globulin Ratio 0.6 L Current Medications Acetaminophen (Acetaminophen 325 Mg Tablet) 650 mg PO Q6H PRN PRN PRN Reason: Pain Score 1-10/Temp > 100.7 F Ascorbic Acid (Ascorbic Acid 500 Mg Tablet) 500 mg PO DAILY [facility] Last Admin: 02/12/20 09:22 Dose: 500 mg Documented by: Atorvastatin Calcium (Atorvastatin Calcium 40 Mg Tablet) 40 mg PO QHS [facility] Last Admin: 02/11/20 21:57 Dose: 40 mg Documented by: Bupropion HCl (Bupropion (Sr) 150 Mg Tablet.Sa) 150 mg PO BID [facility] Last Admin: 02/12/20 09:22 Dose: 150 mg Documented by: Cholecalciferol (Cholecalciferol (Vit D3) 1,000 Unit (25mcg)) 1,000 unit PO DAILY [facility] Last Admin: 02/12/20 09:22 Dose: 1,000 unit Documented by: Dexamethasone (Dexamethasone 4 Mg Tablet) 6 mg PO DAILY [facility] Last Admin: 02/12/20 09:21 Dose: 6 mg Documented by: Enoxaparin Sodium (Enoxaparin 80 Mg/0.8 Ml Syringe) 70 mg SC BID [facility] Last Admin: 02/12/20 09:21 Dose: 70 mg Documented by: Remdesivir 100 mg/ Sodium (Chloride) 250 mls @ 125 mls/hr IV DAILY [facility] Stop: 02/15/20 11:59 Last Admin: 02/12/20 11:00 Dose: 125 mls/hr Documented by: Losartan Potassium (Losartan Potassium 100 Mg Tablet) 100 mg PO DAILY [facility] Last Admin: 02/12/20 09:21 Dose: 100 mg Documented by: Nystatin (Nystatin 500,000 Unit/5 Ml Udc) 500,000 unit PO 4X/DAY [facility] Last Admin: 02/12/20 09:22 Dose: 500,000 unit Documented by: [id number] Ethyl Esters ([place]-3 Acid Ethyl Esters 1 Gm Capsule) 1 gm PO TIDCM [facility] Last Admin: 02/12/20 09:21 Dose: 1 gm Documented by: Ondansetron HCl (Ondansetron 4 Mg/2 Ml Vial) 4 mg IV Q8H PRN PRN PRN Reason: NAUSEA/VOMITING Oxycodone HCl (Oxycodone 5 Mg Tablet) 5 mg PO Q4H PRN PRN PRN Reason: Pain Score 4-10 Sodium Chloride (0.9% Saline Lock 10 Ml Syringe) 10 - 40 ml IV UD PRN PRN Reason: SALINE FLUSH Last Admin: 02/11/20 17:17 Dose: 10 ml Documented by: STROKE Vital Signs/Narrative: Vital Signs Temp Pulse Resp BP Pulse Ox 02/12/20 10:06 51 L 02/12/20 09:19 98.6 F 67 18 147/71 H 94 Medical Necessity - Tobacco Use Smoking Status: Former smoker Tobacco Use: Non-smoker Assessment/Plan All Active Problems Pneumonia due to COVID-19 virus (Acute) Hypoxia (Acute) 1. Acute hypoxic respiratory failure secondary to COVID-19 pneumonia -His symptoms started on 02/01/2020 and he tested positive on 02/06/2020 -He received outpatient monoclonal antibody therapy on 02/08/2020 -Continue with Decadron and remdesivir -Appreciate ID input -Elevated D-dimer, CTA was negative for PE given age and elevation, may need to be on a low-dose anticoagulant on discharge 2. HTN/HLD -Hypokalemia secondary to HCTZ, so it was held -Blood pressure is stable -Continue with Lipitor and losartan DVT: Therapeutic Lovenox Inpatient E&M: [id number] Subs Hosp L2
--- NOTE | 2020-02-12 13:48 | CASEMGMT ---
RN CM Assessment Note Intro role of CM to patient's via phone. Attempted to call patient in room, unable to participate in assessment at this time. Per , until pt was ill, he was very independent, driving and active @ home. He used a walker recently due to weakness. PT/OT is ordered and CM will review for needs @ home. COVID TESTING: @ [facility] ER 02/06/20 Presentation: shortness of breath Diagnosis: COVID-19 PCP: Dr. Felton Benitez Specialists: none Insurance: [employer] Medicare PPO Preferred Pharmacy: [facility] Prescription Benefit: yes LNOK: , Rosario Olson Living Arrangements: Lives independently with . assisted with care needs while pt was ill and can assist on discharge. Tranportation: drives and drives DME: walker. No prior home oxygen or cpap. Patient's states any local DME [facility] is ok. Let know DOLLY is affiliated with the hospital and she would prefer this. HHC: none SNF: none Patient DC Goals: Home on discharge DC Plan: anticipate home on discharge. Will follow PT/OT notes. CM available for discharge planning coordination. Contact CM for any concerns/needs that may arise. Kyle MONACO RN ACM
--- NOTE | 2020-02-12 15:40 | PCM.HP.ID ---
Problem List (1) Pneumonia due to COVID-19 virus Status: Acute Reason for Consult: covid Consulted by: Dr. Lee History of Present Illness: The patient is a 74 year old M with sx starting around 01/29-, c/o cough, mild dyspnea. A week later developed fatigue, mild sore throat. without symptoms, but did have a surgery in [place] in early January. He was Ag (+) 02/05, given Regeneron monoclonal Ab infusion 02/07. Came to ED with worsening dyspnea. Started on dex and remdesivir. Feeling better today. CTA neg for PE. Full ROS performed and neg except as noted above. - Medical History Past Medical History (Chronic Problems): Chronic Problems Hypertension (Chronic) Hyperlipidemia (Chronic) Allergies/Adverse Reactions: Allergies No Known Allergies Allergy (Verified 02/11/20 12:25) Home Medications: Ambulatory Orders Medication Instructions Recorded Losartan/Hydrochlorothiazide 1 tab PO DAILY 12/03/19 [Losartan-Hctz 100-25 mg Tab] [place]-3 Acid Ethyl Esters 1 gm PO TID 12/03/19 Rosuvastatin Calcium 20 mg PO QHS 12/03/19 buPROPion SR [Wellbutrin SR (150mg 150 mg PO BID 12/03/19 tablets)] Ascorbic Acid [Vitamin C] 500 mg PO DAILY 02/11/20 Cholecalciferol (Vitamin D3) 1,000 unit PO DAILY 02/11/20 [Vitamin D3] Vitamin E 400 unit PO DAILY 02/11/20 - Social History SMOKING STATUS:: Former smoker Vital Signs Temp Pulse Resp BP Pulse Ox 98.6 F 73 18 143/71 H 96 02/12/20 14:36 02/12/20 14:36 02/12/20 14:36 02/12/20 14:36 02/12/20 14:36 Oxygen Flow Rate (L/min) 3 Oxygen Delivery Method Nasal Cannula Weight: 75.1 kg Body Mass Index (BMI) 25.2 Laboratory Tests Past 24 Hrs 02/11/20 02/11/20 02/12/20 15:28 15:28 05:50 WBC 7.3 RBC 4.01 L Hgb 12.1 L Hct 37.3 L MCV 93.0 MCH 30.2 MCHC 32.4 RDW Std Deviation 46.3 H RDW Coeff of Isha 13.4 Plt Count 244 MPV 10.2 Immature Gran % (Auto) 1.100 H Neut % (Auto) 84.6 H Lymph % (Auto) 8.9 L [place] % (Auto) 5.3 Eos % (Auto) 0.0 Baso % (Auto) 0.1 Absolute Neuts (auto) 6.2 Absolute Lymphs (auto) 0.65 L Nucleated RBC % 0 Differential Comment SCANNED Atypical Lymphocytes 2+ Sodium Potassium Chloride Carbon Dioxide Anion Gap BUN Creatinine Estim Creat Clear Calc Est GFR (MDRD) Af Amer Est GFR (MDRD) Non-Af BUN/Creatinine Ratio Glucose Calcium Magnesium 2.2 Total Bilirubin AST ALT Alkaline Phosphatase Total Protein Albumin Globulin Albumin/Globulin Ratio Procalcitonin 0.32 H 02/12/20 05:50 WBC RBC Hgb Hct MCV MCH MCHC RDW Std Deviation RDW Coeff of Isha Plt Count MPV Immature Gran % (Auto) Neut % (Auto) Lymph % (Auto) [place] % (Auto) Eos % (Auto) Baso % (Auto) Absolute Neuts (auto) Absolute Lymphs (auto) Nucleated RBC % Differential Comment Atypical Lymphocytes Sodium 139 Potassium 3.8 Chloride 105 Carbon Dioxide 27.0 Anion Gap 7 BUN 22 H Creatinine 0.84 Estim Creat Clear Calc 73.51 Est GFR (MDRD) Af Amer 115 Est GFR (MDRD) Non-Af 95 BUN/Creatinine Ratio 26.3 H Glucose 124 H Calcium 8.3 L Magnesium Total Bilirubin 0.50 AST 56 H ALT 40 Alkaline Phosphatase 64 Total Protein 6.5 Albumin 2.4 L Globulin 4.1 Albumin/Globulin Ratio 0.6 L Procalcitonin - Other Studies Radiology: [] reviewed Other Studies: [] Route of nutrition/ use of supplements: [] Nutritional Intake: [] IV Site: [] [place] Catheter: [] - Physical Exam General: Alert, Oriented x3, Cooperative HEENT: Atraumatic, PERRLA, EOMI Neck: Supple, No Nodes Lungs: Clear to auscultation, Diminished Cardiovascular: Regular rate, Regular Rhythm Abdomen: Soft, Non Tender, Non-Distended Extremities: No edema Skin: No rashes IV Site: Peripheral, without redness Musculoskeletal: No Tenderness to Palpation of Joints or Extremities Neurological: Cranial nerves II-XII grossly intact - Assessment/Plan Antibiotics: [] Assessment/Plan: [] Active and Suspected Problems Pneumonia due to COVID-19 virus (Acute) Hypoxia (Acute) covid with hypoxia - sx started 01/29-. Covid Ag (+) 02/05. Got bamlanivimab on 02/07. On remdesivir and dex here. D-dimer was 1. CT neg for PE. Will decrease lovenox to intermediate proph dosing. Plan on 10 days total of dex, discharge on 2 weeks either xarelto 10mg daily or eliquis 2.5mg bid. Will follow, thank you
[2020-02-12] MEDS: Enoxaparin 30 MG/0.3 ML Syringe SC (20:48)
[2020-02-12] MEDS: Atorvastatin Calcium 40 MG Tablet PO (20:48)
[2020-02-13] VITALS (8 sets, daily range): BP systolic 138–150; BP diastolic 71–77; PULSE 58–71; RESP 18–20; TEMP 36.1–37; O2SAT 87–95
[2020-02-13 07:35] LABS: Absolute Lymphocyte Count 1.05 X10^3/uL (0.83-4.51); Absolute Neutrophil Count 14.8 X10^3/uL (2.0-7.7); Basophil# 0.04 X10^3/uL; Basophil% 0.2 % (0-1); Hemoglobin 11.9 g/dL (13.0-16.5); Lymphocyte # 1.05 X10^3/ul (4.0); Lymphocyte % 6.1 % (19-41); Mean Corp Hgb Conc 33.1 g/dL (32-36); Mean Corpuscular Hgb 30.6 pg (27.0-32.0); Mean Corpuscular Volume 92.5 fL (80-94); Mean Platelet Vol. 10.4 fl (6.2-12.0); Monocyte% 5.8 % (0-10); NRBC Flagged by Analyzer 0 % (0-5); Neutrophil # 14.81 X10^3/uL (2.7-7.7); Neutrophil % 85.9 % (47-70); POSITIVE MORPHOLOGY YES; Platelet Count 317 K/mm3 (150-450); RBC Distribution Width CV 13.6 % (11.6-14.6); RBC Distribution Width SD 46.2 fl (35.1-43.9); Red Blood Count 3.89 M/mm3 (4.6-6.2); White Blood Count 17.2 K/mm3 (4.4-11.0)
[2020-02-13 07:51] LABS: ALB/GLOB Ratio 0.5 RATIO (0.9-2.4); AST(SGOT) 43 U/L (15-37); Alanine Aminotransfer ALT/SGPT 40 U/L (16-61); Albumin, Serum 2.2 g/dL (3.2-5.0); Alkaline Phosphatase 66 U/L (45-117); Anion Gap 6 (5-15); BUN 26 mg/dL (7-18); BUN/Creat Ratio 31.9 RATIO (10-20); Calcium,Total 8.3 mg/dL (8.5-10.1); Chloride 108 mmol/L (98-107); Creatinine, Serum 0.81 mg/dL (0.70-1.30); EST Glomerular Filtration Rate 98 mL/min (>60); Est Glom Filt Rate - Afr Amer 119 mL/min (>60); Estimated Creatinine Clearance 76.23 ml/min; Globulin 4.3 g/dL (2.2-4.2); Glucose 127 mg/dL (74-106); Potassium 3.4 mmol/L (3.5-5.1); Protein, Total 6.5 g/dL (6.4-8.2); Sodium Level 139 mmol/L (136-145)
[2020-02-13] MEDS: Omega-3 Acid Ethyl Esters 1 GM Capsule PO ×3 (08:02→17:42)
[2020-02-13] MEDS: Enoxaparin 30 MG/0.3 ML Syringe SC ×2 (08:03→21:22)
[2020-02-13] MEDS: dexAMETHasone 4 MG Tablet 6 MG PO (08:03)
[2020-02-13] MEDS: Losartan Potassium 100 MG Tablet PO (08:03)
[2020-02-13] MEDS: buPROPion (SR) 150 MG Tablet.SA PO ×2 (08:03→21:23)
[2020-02-13] MEDS: NYSTATIN 500,000 UNIT/5 ML UDC 500000 UNIT PO ×4 (08:04→21:24)
[2020-02-13] MEDS: Ascorbic Acid 500 MG Tablet PO (08:04)
[2020-02-13 09:45] LABS: Differential Comment SCANNED
[2020-02-13 09:46] LABS: Reactive Lymphocyte 1+
--- NOTE | 2020-02-13 10:37 | PCM.PN.HOSP ---
Patient Problems: Active and Suspected Problems Pneumonia due to COVID-19 virus (Acute) Hypoxia (Acute) Subjective: Doing well. No issues overnight. States that he feels little bit better. Requiring 3 to 5 L nasal cannula to maintain his oxygen saturations. Vitals/I&O's: Vital Signs Temp Pulse Resp BP Pulse Ox 98.6 F 62 20 H 138/71 H 93 02/13/20 07:58 02/13/20 07:58 02/13/20 07:59 02/13/20 07:58 02/13/20 07:59 Oxygen Flow Rate (L/min) 5 Oxygen Delivery Method Nasal Cannula Weight: 165 lb 9.074 oz Body Mass Index (BMI) 25.2 Intake and Output for Last 24 Hours 02/11/20 02/12/20 02/13/20 23:59 23:59 23:59 Intake Total 526.25 / 526.25 250 / 250 Output Total 225 / 225 625 / 625 200 / 200 Balance 301.25 / 301.25 -375 / -375 -200 / -200 General: Alert, Oriented x3, Cooperative, No apparent distress HEENT: Atraumatic, PERRLA, EOMI, Normocephalic Oral: Moist Mucosa Neck: Supple, No JVD Lungs: Normal air movement, No rhonchi, No wheeze, No rales, Diminished Cardiovascular: Regular rate, Regular Rhythm, Normal S1, Normal S2, No murmurs Abdomen: Soft, Non Tender, Non-Distended, No Hepato-splenomegaly Extremities: No edema, Capillary Refill Less than 3 Seconds Skin: No rashes, No breakdown Neurological: Neuro grossly intact, Sensory exam intact to light touch and pain Psych/Mental Status: Normal Affect, Appropriate Laboratory Results 02/13/20 06:47: WBC 17.2 H, RBC 3.89 L, Hgb 11.9 L, Hct 36.0 L, MCV 92.5, MCH 30.6, MCHC 33.1, RDW Std Deviation 46.2 H, RDW Coeff of Isha 13.6, Plt Count 317, MPV 10.4, Immature Gran % (Auto) 2.000 H, Neut % (Auto) 85.9 H, Lymph % (Auto) 6.1 L, [place] % (Auto) 5.8, Eos % (Auto) 0.0, Baso % (Auto) 0.2, Absolute Neuts (auto) 14.8 H, Absolute Lymphs (auto) 1.05, Nucleated RBC % 0, Differential Comment SCANNED, Reactive Lymphocytes 1+ 02/13/20 06:47: Sodium 139, Potassium 3.4 L, Chloride 108 H, Carbon Dioxide 25.0, Anion Gap 6, BUN 26 H, Creatinine 0.81, Estim Creat Clear Calc 76.23, Est GFR (MDRD) Af Amer 119, Est GFR (MDRD) Non-Af 98, BUN/Creatinine Ratio 31.9 H, Glucose 127 H, Calcium 8.3 L, Total Bilirubin 0.50, AST 43 H, ALT 40, Alkaline Phosphatase 66, Total Protein 6.5, Albumin 2.2 L, Globulin 4.3 H, Albumin/Globulin Ratio 0.5 L Current Medications Acetaminophen (Acetaminophen 325 Mg Tablet) 650 mg PO Q6H PRN PRN PRN Reason: Pain Score 1-10/Temp > 100.7 F Ascorbic Acid (Ascorbic Acid 500 Mg Tablet) 500 mg PO DAILY [facility] Last Admin: 02/13/20 08:04 Dose: 500 mg Documented by: Atorvastatin Calcium (Atorvastatin Calcium 40 Mg Tablet) 40 mg PO QHS [facility] Last Admin: 02/12/20 20:48 Dose: 40 mg Documented by: Bupropion HCl (Bupropion (Sr) 150 Mg Tablet.Sa) 150 mg PO BID [facility] Last Admin: 02/13/20 08:03 Dose: 150 mg Documented by: Cholecalciferol (Cholecalciferol (Vit D3) 1,000 Unit (25mcg)) 1,000 unit PO DAILY [facility] Last Admin: 02/13/20 08:04 Dose: 1,000 unit Documented by: Dexamethasone (Dexamethasone 4 Mg Tablet) 6 mg PO DAILY [facility] Stop: 02/20/20 10:01 Last Admin: 02/13/20 08:03 Dose: 6 mg Documented by: Enoxaparin Sodium (Enoxaparin 30 Mg/0.3 Ml Syringe) 30 mg SC BID [facility] Last Admin: 02/13/20 08:03 Dose: 30 mg Documented by: Remdesivir 100 mg/ Sodium (Chloride) 250 mls @ 125 mls/hr IV DAILY [facility] Stop: 02/15/20 11:59 Last Infusion: 02/12/20 13:06 Dose: Infused Documented by: Losartan Potassium (Losartan Potassium 100 Mg Tablet) 100 mg PO DAILY [facility] Last Admin: 02/13/20 08:03 Dose: 100 mg Documented by: Nystatin (Nystatin 500,000 Unit/5 Ml Udc) 500,000 unit PO 4X/DAY [facility] Last Admin: 02/13/20 08:04 Dose: 500,000 unit Documented by: [id number] Ethyl Esters ([place]-3 Acid Ethyl Esters 1 Gm Capsule) 1 gm PO TIDCM [facility] Last Admin: 02/13/20 08:02 Dose: 1 gm Documented by: Ondansetron HCl (Ondansetron 4 Mg/2 Ml Vial) 4 mg IV Q8H PRN PRN PRN Reason: NAUSEA/VOMITING Sodium Chloride (0.9% Saline Lock 10 Ml Syringe) 10 - 40 ml IV UD PRN PRN Reason: SALINE FLUSH Last Admin: 02/11/20 17:17 Dose: 10 ml Documented by: STROKE Vital Signs/Narrative: Vital Signs Temp Pulse Resp BP Pulse Ox 02/13/20 07:59 20 H 93 02/13/20 07:58 98.6 F 62 18 138/71 H 87 Medical Necessity - Tobacco Use Smoking Status: Former smoker Tobacco Use: Non-smoker Assessment/Plan All Active Problems Pneumonia due to COVID-19 virus (Acute) Hypoxia (Acute) 1. Acute hypoxic respiratory failure secondary to COVID-19 pneumonia -His symptoms started on 02/01/2020 and he tested positive on 02/06/2020 -He received outpatient monoclonal antibody therapy on 02/08/2020 -Continue with Decadron and remdesivir -Appreciate ID input -Elevated D-dimer, CTA was negative for PE given age and elevation, may need to be on a low-dose anticoagulant on discharge 2. HTN/HLD -Hypokalemia secondary to HCTZ, so it was held -Blood pressure is stable -Continue with Lipitor and losartan DVT: Lovenox Inpatient E&M: 14182 Subs Hosp L2
[2020-02-13] MEDS: Atorvastatin Calcium 40 MG Tablet PO (21:23)
[2020-02-14 03:00] VITALS: PULSE 68
[2020-02-14 03:45] VITALS: BP 150/81; PULSE 97; RESP 16; TEMP 36.4; O2SAT 95
[2020-02-14 05:55] LABS: Absolute Lymphocyte Count 1.18 X10^3/uL (0.83-4.51); Basophil# 0.03 X10^3/uL; Basophil% 0.2 % (0-1); Hematocrit 34.8 % (40-54); Hemoglobin 11.5 g/dL (13.0-16.5); Lymphocyte # 1.18 X10^3/ul (4.0); Lymphocyte % 7.1 % (19-41); Mean Corpuscular Hgb 30.5 pg (27.0-32.0); Mean Corpuscular Volume 92.3 fL (80-94); Mean Platelet Vol. 9.7 fl (6.2-12.0); NRBC Flagged by Analyzer 0 % (0-5); Neutrophil # 13.97 X10^3/uL (2.7-7.7); Neutrophil % 84.3 % (47-70); Platelet Count 330 K/mm3 (150-450); RBC Distribution Width CV 13.7 % (11.6-14.6); RBC Distribution Width SD 46.8 fl (35.1-43.9); Red Blood Count 3.77 M/mm3 (4.6-6.2); White Blood Count 16.6 K/mm3 (4.4-11.0)
[2020-02-14 06:25] LABS: ALB/GLOB Ratio 0.5 RATIO (0.9-2.4); AST(SGOT) 37 U/L (15-37); Alanine Aminotransfer ALT/SGPT 38 U/L (16-61); Albumin, Serum 2.1 g/dL (3.2-5.0); Alkaline Phosphatase 74 U/L (45-117); Anion Gap 5 (5-15); BUN 27 mg/dL (7-18); BUN/Creat Ratio 33.3 RATIO (10-20); Calcium,Total 8.4 mg/dL (8.5-10.1); Chloride 107 mmol/L (98-107); Creatinine, Serum 0.81 mg/dL (0.70-1.30); EST Glomerular Filtration Rate 99 mL/min (>60); Est Glom Filt Rate - Afr Amer 119 mL/min (>60); Estimated Creatinine Clearance 76.23 ml/min; Globulin 4.2 g/dL (2.2-4.2); Glucose 105 mg/dL (74-106); Potassium 3.5 mmol/L (3.5-5.1); Protein, Total 6.3 g/dL (6.4-8.2); Sodium Level 138 mmol/L (136-145)
[2020-02-14 08:53] VITALS: BP 146/74; PULSE 64; RESP 18; TEMP 36.9; O2SAT 90
[2020-02-14] MEDS: dexAMETHasone 4 MG Tablet 6 MG PO (08:56)
[2020-02-14] MEDS: Losartan Potassium 100 MG Tablet PO (08:56)
[2020-02-14] MEDS: Omega-3 Acid Ethyl Esters 1 GM Capsule PO ×2 (08:56→12:52)
[2020-02-14] MEDS: Ascorbic Acid 500 MG Tablet PO (08:57)
[2020-02-14] MEDS: buPROPion (SR) 150 MG Tablet.SA PO (08:57)
[2020-02-14] MEDS: Enoxaparin 30 MG/0.3 ML Syringe SC (08:57)
[2020-02-14] MEDS: NYSTATIN 500,000 UNIT/5 ML UDC 500000 UNIT PO ×2 (08:57→12:52)
[2020-02-14 10:29] VITALS: O2SAT 81; O2SAT 85; O2SAT 90
--- NOTE | 2020-02-14 10:42 | PN_ITS ---
Patient Problems: Active and Suspected Problems Pneumonia due to COVID-19 virus (Acute) Hypoxia (Acute) Subjective: No new issues. He is stable on 4 L nasal cannula. Will obtain an ambulatory pulse ox today Vitals/I&O's: Vital Signs Temp Pulse Resp BP Pulse Ox 98.5 F 64 18 146/74 H 85 02/14/20 08:53 02/14/20 08:53 02/14/20 08:53 02/14/20 08:53 02/14/20 10:29 Oxygen Flow Rate (L/min) [ 4 AMBULATION with Oxygen] Oxygen Flow Rate (L/min) [ 0 AMBULATING on Room Air] Oxygen Flow Rate (L/min) [At 0 REST on Room Air] Oxygen Flow Rate (L/min) 4 Oxygen Delivery Method Nasal Cannula Weight: 168 lb 6.931 oz Body Mass Index (BMI) 25.2 Intake and Output for Last 24 Hours 02/12/20 02/13/20 02/14/20 23:59 23:59 23:59 Intake Total 250 / 250 450 / 750 700 / 700 Output Total 625 / 625 1050 / 1050 Balance -375 / -375 -600 / -300 700 / 700 General: Alert, Oriented x3, Cooperative, No apparent distress HEENT: Atraumatic, PERRLA, EOMI, Normocephalic Oral: Moist Mucosa Neck: Supple, No JVD Lungs: Normal air movement, No rhonchi, No wheeze, No rales, Diminished Cardiovascular: Regular rate, Regular Rhythm, Normal S1, Normal S2, No murmurs Abdomen: Soft, Non Tender, Non-Distended, No Hepato-splenomegaly Extremities: No edema, Capillary Refill Less than 3 Seconds Skin: No rashes, No breakdown Neurological: Neuro grossly intact, Sensory exam intact to light touch and pain Psych/Mental Status: Normal Affect, Appropriate Laboratory Results 02/14/20 05:20: WBC 16.6 H, RBC 3.77 L, Hgb 11.5 L, Hct 34.8 L, MCV 92.3, MCH 30.5, MCHC 33.0, RDW Std Deviation 46.8 H, RDW Coeff of Isha 13.7, Plt Count 330, MPV 9.7, Immature Gran % (Auto) 2.400 H, Neut % (Auto) 84.3 H, Lymph % (Auto) 7.1 L, [place] % (Auto) 6.0, Eos % (Auto) 0.0, Baso % (Auto) 0.2, Absolute Neuts (auto) 14.0 H, Absolute Lymphs (auto) 1.18, Nucleated RBC % 0 02/14/20 05:20: Sodium 138, Potassium 3.5, Chloride 107, Carbon Dioxide 26.0, Anion Gap 5, BUN 27 H, Creatinine 0.81, Estim Creat Clear Calc 76.23, Est GFR (MDRD) Af Amer 119, Est GFR (MDRD) Non-Af 99, BUN/Creatinine Ratio 33.3 H, Glucose 105, Calcium 8.4 L, Total Bilirubin 0.50, AST 37, ALT 38, Alkaline Phosphatase 74, Total Protein 6.3 L, Albumin 2.1 L, Globulin 4.2, Albumin/Globulin Ratio 0.5 L Current Medications Acetaminophen (Acetaminophen 325 Mg Tablet) 650 mg PO Q6H PRN PRN PRN Reason: Pain Score 1-10/Temp > 100.7 F Ascorbic Acid (Ascorbic Acid 500 Mg Tablet) 500 mg PO DAILY [facility] Last Admin: 02/14/20 08:57 Dose: 500 mg Documented by: Atorvastatin Calcium (Atorvastatin Calcium 40 Mg Tablet) 40 mg PO QHS [facility] Last Admin: 02/13/20 21:23 Dose: 40 mg Documented by: Bupropion HCl (Bupropion (Sr) 150 Mg Tablet.Sa) 150 mg PO BID [facility] Last Admin: 02/14/20 08:57 Dose: 150 mg Documented by: Cholecalciferol (Cholecalciferol (Vit D3) 1,000 Unit (25mcg)) 1,000 unit PO DAILY [facility] Last Admin: 02/14/20 08:57 Dose: 1,000 unit Documented by: Dexamethasone (Dexamethasone 4 Mg Tablet) 6 mg PO DAILY [facility] Stop: 02/20/20 10:01 Last Admin: 02/14/20 08:56 Dose: 6 mg Documented by: Enoxaparin Sodium (Enoxaparin 30 Mg/0.3 Ml Syringe) 30 mg SC BID [facility] Last Admin: 02/14/20 08:57 Dose: 30 mg Documented by: Remdesivir 100 mg/ Sodium (Chloride) 250 mls @ 125 mls/hr IV DAILY [facility] Stop: 02/15/20 11:59 Last Admin: 02/14/20 10:23 Dose: 125 mls/hr Documented by: Losartan Potassium (Losartan Potassium 100 Mg Tablet) 100 mg PO DAILY [facility] Last Admin: 02/14/20 08:56 Dose: 100 mg Documented by: Nystatin (Nystatin 500,000 Unit/5 Ml Udc) 500,000 unit PO 4X/DAY [facility] Last Admin: 02/14/20 08:57 Dose: 500,000 unit Documented by: [id number] Ethyl Esters ([place]-3 Acid Ethyl Esters 1 Gm Capsule) 1 gm PO TIDCM [facility] Last Admin: 02/14/20 08:56 Dose: 1 gm Documented by: Ondansetron HCl (Ondansetron 4 Mg/2 Ml Vial) 4 mg IV Q8H PRN PRN PRN Reason: NAUSEA/VOMITING Sodium Chloride (0.9% Saline Lock 10 Ml Syringe) 10 - 40 ml IV UD PRN PRN Reason: SALINE FLUSH Last Admin: 02/11/20 17:17 Dose: 10 ml Documented by: STROKE Vital Signs/Narrative: Vital Signs Temp Pulse Resp BP Pulse Ox Pulse Ox Pulse Ox 02/14/20 10:29 81 90 02/14/20 08:53 98.5 F 64 18 146/74 H 90 Pulse Ox 02/14/20 10:29 85 02/14/20 08:53 Medical Necessity - Tobacco Use Smoking Status: Former smoker Tobacco Use: Non-smoker Assessment/Plan All Active Problems Pneumonia due to COVID-19 virus (Acute) Hypoxia (Acute) 1. Acute hypoxic respiratory failure secondary to COVID-19 pneumonia -His symptoms started on 02/01/2020 and he tested positive on 02/06/2020 -He received outpatient monoclonal antibody therapy on 02/08/2020 -Continue with Decadron and remdesivir. We will obtain an ambulatory pulse ox -Appreciate ID input -Elevated D-dimer, CTA was negative for PE given age and elevation, may need to be on a low-dose anticoagulant on discharge 2. HTN/HLD -Hypokalemia secondary to HCTZ, so it was held -Blood pressure is stable -Continue with Lipitor and losartan DVT: Lovenox Inpatient E&M: 35996 Subs Hosp L2
--- NOTE | 2020-02-14 13:58 | DCINST_ITS ---
- Discharge Diagnoses Current Active Problems: Current Active and Chronic Problems Hypertension (Chronic) Hyperlipidemia (Chronic) Pneumonia due to COVID-19 virus (Acute) Hypoxia (Acute) You will use the following diet at home:: Cardiac Your food should be the consistency of: Regular Your liquids should be the consistency of: Regular/Thin Discharge Activity: Return to Normal Activity Call your doctor if you observe: Fever of 101 or Higher, Shortness of breath, Dizziness, Fainting spells, Swelling in the ankles, Chest pain, Increased palpitations (irregular heartbeat) Additional Instructions: Follow-up with your primary care physician in 3 to 5 days to obtain a BMP to monitor your kidney function as well as her potassium which was low on admission secondary to your hydrochlorothiazide use. Allergies/Adverse Reactions: Allergies No Known Allergies Allergy (Verified 02/11/20 12:25) Medications to take at Discharge Losartan/Hydrochlorothiazide [Losartan-Hctz 100-25 mg Tab] 1 tab PO DAILY 12/03/19 [place]-3 Acid Ethyl Esters 1 gm PO TID 12/03/19 Rosuvastatin Calcium 20 mg PO QHS 12/03/19 buPROPion SR [Wellbutrin SR (150mg tablets)] 150 mg PO BID 12/03/19 Ascorbic Acid [Vitamin C] 500 mg PO DAILY 02/11/20 Cholecalciferol (Vitamin D3) [Vitamin D3] 1,000 unit PO DAILY 02/11/20 Vitamin E 400 unit PO DAILY 02/11/20 Apixaban [Eliquis] 2.5 mg PO BID #28 tab 02/14/20 Dexamethasone [Decadron] 6 mg PO DAILY #18 tab 02/14/20 The following prescriptions were given: Dexamethasone [Decadron] 6 mg PO DAILY #18 tab Transmission Status: Pending to [address] Apixaban [Eliquis] 2.5 mg PO BID #28 tab Transmission Status: Pending to [facility] [address] Primary Care Physician: Felton eBnitez MD [Primary Care Provider] - Please follow up with your Primary Care Physician in: 3-5 days Test Results: Test results from this visit will be discussed in further detail at your follow- up appointment, if applicable.
--- NOTE | 2020-02-14 15:07 | PCM.DC.SUM ---
Discharge Date and Diagnosis - Problem List Patient Problems: Active and Suspected Problems Pneumonia due to COVID-19 virus (Acute) Hypoxia (Acute) Date of Admission: 02/11/20 Date of Discharge: 02/14/20 - Primary Discharge Diagnosis Acute Problems: Active Problems Pneumonia due to COVID-19 virus (Acute) Hypoxia (Acute) - Secondary Discharge Diagnosis Chronic Problems: Chronic Problems Hypertension (Chronic) Hyperlipidemia (Chronic) Hospital Course and Treatment Imaging Results: Clinical Impression(s) from Imaging Studies Chest X-Ray 02/11/20 13:20 IMPRESSION: New bilateral pulmonary infiltrates in a preferential peripheral distribution. Follow-up is recommended. Electronically Signed: Richar Parra, at 13:34 EST , Service support , Chest CTA 02/11/20 15:15 IMPRESSION: No demonstrated pulmonary embolism or arterial dissection. Bilateral patchy pulmonary infiltrates. Right lower lobe nonspecific peripheral nodule. Electronically Signed: Tyron Barton DO at 16:28 EST Tel [phone], Service support , Consults: ID Operations: None Procedures: None Summary of Care Provided: Per HPI: The patient is a 74 year old M with past medical history of hypertension, hyperlipidemia who comes in with progressive shortness of breath and low reading on his pulse oximeter noted today. Patient stated that his symptoms started around 02/01/20. He was seen in the ED on 02/06/20 and tested positive with a rapid antigen. He was seen in the outpatient on 02/08/20 and received monoclonal antibody infusion. He however became more short of breath over the last couple of days and he noted his pulse ox was slightly in the 80s. He came to the emergency room at the urging of his family. He denied any chest pain or dizziness or palpitations or fever or chills. His vital signs ED showed temperature of 97.2F, heart rate 60, blood pressure 121/95, respiratory rate was 30, SPO2 was 87% on room air, this improved to 94% on 2 L of oxygen. WBC count 8.9, hemoglobin 12.6, platelet count was 213, D-dimer was 1.06, potassium was 2.8, sodium 137, chloride 101, bicarbonate 30, BUN 23, creatinine 1.12, magnesium is 2.2, LFTs unremarkable, procalcitonin 0.32. Hospital Course: 1. Acute hypoxic respiratory failure secondary to COVID-19 pneumonia -His symptoms started on 02/01/2020 and he tested positive on 02/06/2020 -He received outpatient monoclonal antibody therapy on 02/08/2020 -Continue with Decadron and remdesivir. He will need 6 more days of Decadron on discharge. He had 4-5 remdesivir doses -An ambulatory pulse ox today and did well needing only 4 L nasal cannula to maintain his oxygen sats -Appreciate ID input -Elevated D-dimer, CTA was negative for PE given age and elevation, plan will be to discharge him on a low-dose Eliquis for 14 days -I discussed with him the possibility of discharge today. He expressed understanding of the risk and benefits of going home and expressed a desire to go home today. I recommend that he follow-up with his PCP in 3 to 5 days for further evaluation of his kidney function as well as his potassium as he did have hypokalemia on admission secondary to the HCTZ. This medication was continued on discharge for his blood pressure as his potassium had normalized to 3.5. 2. HTN/HLD -Hypokalemia secondary to HCTZ, so it was held -Blood pressure is stable -Continue with Lipitor and losartan Patient Problems: Active and Suspected Problems Pneumonia due to COVID-19 virus (Acute) Hypoxia (Acute) - Physical Exam Vitals/I&O's: Vital Signs Temp Pulse Resp BP Pulse Ox 98.5 F 64 18 146/74 H 85 02/14/20 08:53 02/14/20 08:53 02/14/20 08:53 02/14/20 08:53 02/14/20 10:29 Oxygen Flow Rate (L/min) [ 4 AMBULATION with Oxygen] Oxygen Flow Rate (L/min) [ 0 AMBULATING on Room Air] Oxygen Flow Rate (L/min) [At 0 REST on Room Air] Oxygen Flow Rate (L/min) 4 Oxygen Delivery Method Nasal Cannula Weight: 168 lb 6.931 oz Body Mass Index (BMI) 25.2 Intake and Output for Last 24 Hours 02/12/20 02/13/20 02/14/20 23:59 23:59 23:59 Intake Total 250 / 250 450 / 750 700 / 700 Output Total 625 / 625 1050 / 1050 Balance -375 / -375 -600 / -300 700 / 700 Laboratory Results 02/14/20 05:20: WBC 16.6 H, RBC 3.77 L, Hgb 11.5 L, Hct 34.8 L, MCV 92.3, MCH 30.5, MCHC 33.0, RDW Std Deviation 46.8 H, RDW Coeff of Isha 13.7, Plt Count 330, MPV 9.7, Immature Gran % (Auto) 2.400 H, Neut % (Auto) 84.3 H, Lymph % (Auto) 7.1 L, [place] % (Auto) 6.0, Eos % (Auto) 0.0, Baso % (Auto) 0.2, Absolute Neuts (auto) 14.0 H, Absolute Lymphs (auto) 1.18, Nucleated RBC % 0 02/14/20 05:20: Sodium 138, Potassium 3.5, Chloride 107, Carbon Dioxide 26.0, Anion Gap 5, BUN 27 H, Creatinine 0.81, Estim Creat Clear Calc 76.23, Est GFR (MDRD) Af Amer 119, Est GFR (MDRD) Non-Af 99, BUN/Creatinine Ratio 33.3 H, Glucose 105, Calcium 8.4 L, Total Bilirubin 0.50, AST 37, ALT 38, Alkaline Phosphatase 74, Total Protein 6.3 L, Albumin 2.1 L, Globulin 4.2, Albumin/Globulin Ratio 0.5 L Current Medications Acetaminophen (Acetaminophen 325 Mg Tablet) 650 mg PO Q6H PRN PRN PRN Reason: Pain Score 1-10/Temp > 100.7 F Ascorbic Acid (Ascorbic Acid 500 Mg Tablet) 500 mg PO DAILY [facility] Last Admin: 02/14/20 08:57 Dose: 500 mg Documented by: Atorvastatin Calcium (Atorvastatin Calcium 40 Mg Tablet) 40 mg PO QHS [facility] Last Admin: 02/13/20 21:23 Dose: 40 mg Documented by: Bupropion HCl (Bupropion (Sr) 150 Mg Tablet.Sa) 150 mg PO BID [facility] Last Admin: 02/14/20 08:57 Dose: 150 mg Documented by: Cholecalciferol (Cholecalciferol (Vit D3) 1,000 Unit (25mcg)) 1,000 unit PO DAILY [facility] Last Admin: 02/14/20 08:57 Dose: 1,000 unit Documented by: Dexamethasone (Dexamethasone 4 Mg Tablet) 6 mg PO DAILY [facility] Stop: 02/20/20 10:01 Last Admin: 02/14/20 08:56 Dose: 6 mg Documented by: Enoxaparin Sodium (Enoxaparin 30 Mg/0.3 Ml Syringe) 30 mg SC BID [facility] Last Admin: 02/14/20 08:57 Dose: 30 mg Documented by: Remdesivir 100 mg/ Sodium (Chloride) 250 mls @ 125 mls/hr IV DAILY [facility] Stop: 02/15/20 11:59 Last Admin: 02/14/20 10:23 Dose: 125 mls/hr Documented by: Losartan Potassium (Losartan Potassium 100 Mg Tablet) 100 mg PO DAILY [facility] Last Admin: 02/14/20 08:56 Dose: 100 mg Documented by: Nystatin (Nystatin 500,000 Unit/5 Ml Udc) 500,000 unit PO 4X/DAY [facility] Last Admin: 02/14/20 12:52 Dose: 500,000 unit Documented by: [id number] Ethyl Esters ([place]-3 Acid Ethyl Esters 1 Gm Capsule) 1 gm PO TIDCM [facility] Last Admin: 02/14/20 12:52 Dose: 1 gm Documented by: Ondansetron HCl (Ondansetron 4 Mg/2 Ml Vial) 4 mg IV Q8H PRN PRN PRN Reason: NAUSEA/VOMITING Sodium Chloride (0.9% Saline Lock 10 Ml Syringe) 10 - 40 ml IV UD PRN PRN Reason: SALINE FLUSH Last Admin: 02/11/20 17:17 Dose: 10 ml Documented by: Discharge Activity: Return to Normal Activity Call your doctor if you observe: Fever of 101 or Higher, Shortness of breath, Dizziness, Fainting spells, Swelling in the ankles, Chest pain, Increased palpitations (irregular heartbeat) Home Medications: Medications to take at Discharge Losartan/Hydrochlorothiazide [Losartan-Hctz 100-25 mg Tab] 1 tab PO DAILY 12/03/19 [place]-3 Acid Ethyl Esters 1 gm PO TID 12/03/19 Rosuvastatin Calcium 20 mg PO QHS 12/03/19 buPROPion SR [Wellbutrin SR (150mg tablets)] 150 mg PO BID 10/01/20 Ascorbic Acid [Vitamin C] 500 mg PO DAILY 02/11/20 Cholecalciferol (Vitamin D3) [Vitamin D3] 1,000 unit PO DAILY 02/11/20 Vitamin E 400 unit PO DAILY 02/11/20 Apixaban [Eliquis] 2.5 mg PO BID #28 tab 02/14/20 Dexamethasone [Decadron] 6 mg PO DAILY #18 tab 02/14/20 Following Prescriptions Were Given to Patient: Dexamethasone [Decadron] 6 mg PO DAILY #18 tab Transmission Status: Received by [facility] [address] Apixaban [Eliquis] 2.5 mg PO BID #28 tab Transmission Status: Received by [facility] [address] Primary Care Physician: Felton Benitez MD [Primary Care Provider] - Please follow up with your Primary Care Physician in: 3-5 days Disposition: Home Minutes spent on discharge:: 35 Patient Condition:: Stable Medical Necessity - Tobacco Use Smoking Status: Former smoker Tobacco Use: Non-smoker Meaningful Use Info Meaningful Use Diagnoses (Choose all that apply): None applicable Inpatient E&M: 45372 [facility] Hosp
[2020-02-14 16:10] VITALS: BP 154/79; PULSE 69; RESP 18; TEMP 36.6; O2SAT 91
--- NOTE | 2020-02-15 12:54 | CASEMGMT ---
ROXANA OWEN DC PHONE CALL DC DATE: 02/14/2020 DC DISPOSITION: Home with oxygen through DC DIAGNOSIS: SARS COVID 2 Intro role of CM to patient via home phone. Patient states he is doing well and has been checking his oxygen. He is @ 4L and pulse ox goes to 88-89% at times. Pt aware can increase to 5L NC, but RN LEXIE encouraged him to contact his physician to update if he consistently is needing 5L or more. Patient has his medications and will reach out to his physician for follow up. Kyle STEINN RN ACM
== END 2020-02-14 17:05 | disposition home or self-care (01) | DRG 177 ==
LOC: ED 13:00 → MS2 15:28
PROVIDERS: Admitting Provider Internal Medicine; Emergency Provider Emergency Medicine; PCP Family Medicine; Visit Provider Family Medicine
DX: U07.1 COVID-19 (principal); J12.89 Other viral pneumonia; J96.01 Acute respiratory failure with hypoxia; I10 Essential (primary) hypertension; E78.5 Hyperlipidemia, unspecified; E87.6 Hypokalemia; F32.9 Major depressive disorder, single episode, unspecified; T50.2X5A Adverse effect of carbonic-anhydrase inhibitors, benzothiadiazides and other diuretics, initial encounter; F41.9 Anxiety disorder, unspecified; Z82.49 Family history of ischemic heart disease and other diseases of the circulatory system; Z87.891 Personal history of nicotine dependence
CPT/HCPCS: 36415; 71045; 71275; 80048; 80053; 80076; 83735; 84145; 84484; 85025; 85379; 93005; 97802; 99251; 99283; J7030; J7050; M0239; Q0239; Q9967; A4216; G0463

== ENCOUNTER 2020-05-10 05:51 | Outpatient (RCR) | payer MEDICARE, SELFPAY ==
[2020-02-11 16:25] VITALS: BMI 25.2
[2020-05-10] MEDS: COVID-19 VACC, MRNA(PFIZER)/PF 30 MCG/0.3 ML SYRINGE IM (10:25)
[2020-05-31] MEDS: COVID-19 VACC, MRNA(PFIZER)/PF 30 MCG/0.3 ML SYRINGE IM (10:08)
== END 2020-08-09 23:59 ==
LOC: IMMUN 05:51
PROVIDERS: PCP Family Medicine; Referring Provider Family Medicine; Visit Provider Family Medicine
DX: Z23 Encounter for immunization (principal)
CPT/HCPCS: 0001A; 0002A; 91300

== ENCOUNTER → 2020-08-24 09:22 | Outpatient (CLI) | payer MEDICARE, SELFPAY ==
[2020-02-11 16:25] VITALS: BMI 25.2
[2020-08-24 09:30] LABS: Bacteria 0 SEEN /hpf (None Seen); Mucous, Urine 0 SEEN /hpf (<or=2+); Red Blood Cells-Urine 0 SEEN /hpf (0-5); Squamous Epithelial Cells - UA 0 SEEN /hpf (0-5); White Blood Cells 0 SEEN /hpf (0-5)
--- NOTE | 2020-08-24 09:30 | RAD_ITS ---
STUDY: X-RAY CHEST REASON FOR EXAM: Male, 75 years old. SOB TECHNIQUE: 2 views COMPARISON: 02/11/2020. FINDINGS: The heart and mediastinum are within normal limits the previously seen patchy changes involving both lung bhagat in February are no longer identified in today''s examination. Heavy markings in the medial aspect of the right base. The costophrenic angles are clear. No evidence of pleural effusion or pneumothorax. The trachea is in the midline the visualized bony structures are intact. RAD/Chest PA and Lateral IMPRESSION: Resolution of the patchy changes seen in the lung bhagat and the study of 02/11/2020. No intrathoracic active disease is noted in today''s examination. Electronically Signed: Deepika Moore, at 11:08 EDT Tel , Service support ,
[2020-08-24 10:31] LABS: Absolute Lymphocyte Count 1.87 X10^3/uL (0.83-4.51); Absolute Neutrophil Count 3.5 X10^3/uL (2.0-7.7); Basophil# 0.05 X10^3/uL; Basophil% 0.8 % (0-1); Eosinophils% 6.1 % (0-5); Hematocrit 42.3 % (40-54); Hemoglobin 13.8 g/dL (13.0-16.5); Lymphocyte # 1.87 X10^3/ul (0.83-4.51); Lymphocyte % 28.6 % (19-41); Mean Corp Hgb Conc 32.6 g/dL (32-36); Mean Corpuscular Hgb 30.2 pg (27.0-32.0); Mean Corpuscular Volume 92.6 fL (80-94); Mean Platelet Vol. 9.5 fl (6.2-12.0); Monocyte# 0.72 X10^3/uL; NRBC Flagged by Analyzer 0 % (0-5); Neutrophil # 3.46 X10^3/uL (2.7-7.7); Platelet Count 249 K/mm3 (150-450); RBC Distribution Width CV 13.4 % (11.6-14.6); RBC Distribution Width SD 45.5 fl (35.1-43.9); Red Blood Count 4.57 M/mm3 (4.6-6.2); White Blood Count 6.5 K/mm3 (4.4-11.0)
[2020-08-24 11:32] LABS: ALB/GLOB Ratio 0.9 RATIO (0.9-2.4); AST(SGOT) 26 U/L (15-37); Alanine Aminotransfer ALT/SGPT 37 U/L (16-61); Albumin, Serum 3.6 g/dL (3.2-5.0); Alkaline Phosphatase 72 U/L (45-117); Anion Gap 2 (5-15); BUN 15 mg/dL (7-18); BUN/Creat Ratio 12.8 RATIO (10-20); CPK Total, Creatine Kinase 202 U/L (39-308); Chloride 105 mmol/L (98-107); Cholesterol 138 mg/dL (200); Creatinine, Serum 1.17 mg/dL (0.70-1.30); EST Glomerular Filtration Rate 64 mL/min (>60); Est Glom Filt Rate - Afr Amer 78 mL/min (>60); Ferritin 180 ng/mL (26-388); Globulin 4.2 g/dL (2.2-4.2); Glucose 100 mg/dL (74-106); High Density Lipoprotein 40 mg/dL; Potassium 3.9 mmol/L (3.5-5.1); Protein, Total 7.8 g/dL (6.4-8.2); Sodium Level 138 mmol/L (136-145); Triglycerides 216 mg/dL; Very Low Density Lipoprotein 43 mg/dL (5-40)
[2020-08-24 12:23] LABS: Color, Urine Straw (Yellow); Glucose, Dipstick Normal (Normal); Ketone-Dipstick Negative (Negative); Leukocyte Esterase-Dipstick Negative /ul (Negative); Nitrite-Dipstick Negative (Negative); Occult Blood-Urine Negative /ul (Negative); Protein-Dipstick Negative (Negative); Urine Bilirubin Dipstick Negative (Negative); Urine Clarity Clear (Clear); Urine Urobilinogen Normal (Normal)
== END ==
PROVIDERS: PCP Family Medicine; Referring Provider Family Medicine; Visit Provider Family Medicine
DX: R06.02 Shortness of breath (principal); E78.00 Pure hypercholesterolemia, unspecified; I10 Essential (primary) hypertension; R25.2 Cramp and spasm
CPT/HCPCS: 36415; 71046; 80053; 80061; 81001; 82550; 82728; 83735; 84443; 85025

== ENCOUNTER → 2021-01-11 08:23 | Outpatient (CLI) | payer MEDICARE, SELFPAY ==
[2021-01-11 08:28] LABS: Bacteria 0 SEEN /hpf (None Seen); Mucous, Urine 0 SEEN /hpf (<or=2+); Red Blood Cells-Urine 0 SEEN /hpf (0-5); Squamous Epithelial Cells - UA 0 SEEN /hpf (0-5); White Blood Cells 0 SEEN /hpf (0-5)
[2021-01-11 10:20] LABS: Absolute Lymphocyte Count 1.49 X10^3/uL (0.83-4.51); Absolute Neutrophil Count 4.4 X10^3/uL (2.0-7.7); Basophil# 0.05 X10^3/uL; Basophil% 0.7 % (0-1); Color, Urine Yellow (Yellow); Eosinophil# 0.44 X10^3/uL; Eosinophils% 6.1 % (0-5); Glucose, Dipstick Normal (Normal); Hematocrit 42.1 % (40-54); Hemoglobin 13.6 g/dL (13.0-16.5); Ketone-Dipstick Negative (Negative); Leukocyte Esterase-Dipstick Negative /ul (Negative); Lymphocyte # 1.49 X10^3/ul (0.83-4.51); Lymphocyte % 20.6 % (19-41); Mean Corp Hgb Conc 32.3 g/dL (32-36); Mean Corpuscular Hgb 30.2 pg (27.0-32.0); Mean Corpuscular Volume 93.6 fL (80-94); Mean Platelet Vol. 9.5 fl (6.2-12.0); Monocyte# 0.86 X10^3/uL; Monocyte% 11.9 % (0-10); NRBC Flagged by Analyzer 0 % (0-5); Neutrophil # 4.37 X10^3/uL (2.7-7.7); Neutrophil % 60.1 % (47-70); Nitrite-Dipstick Negative (Negative); Occult Blood-Urine Negative /ul (Negative); Platelet Count 265 K/mm3 (150-450); Protein-Dipstick Negative (Negative); RBC Distribution Width SD 44.9 fl (35.1-43.9); Urine Bilirubin Dipstick Negative (Negative); Urine Clarity Clear (Clear); Urine Urobilinogen Normal (Normal); White Blood Count 7.3 K/mm3 (4.4-11.0)
[2021-01-11 11:18] LABS: ALB/GLOB Ratio 0.8 RATIO (0.9-2.4); AST(SGOT) 28 U/L (15-37); Alanine Aminotransfer ALT/SGPT 37 U/L (16-61); Albumin, Serum 3.4 g/dL (3.2-5.0); Alkaline Phosphatase 71 U/L (45-117); Anion Gap 6 (5-15); BUN 17 mg/dL (7-18); Calcium,Total 9.2 mg/dL (8.5-10.1); Chloride 104 mmol/L (98-107); Cholesterol 96 mg/dL (200); Creatinine, Serum 1.21 mg/dL (0.70-1.30); EST Glomerular Filtration Rate 62 mL/min (>60); Est Glom Filt Rate - Afr Amer 75 mL/min (>60); Globulin 4.4 g/dL (2.2-4.2); Glucose 105 mg/dL (74-106); High Density Lipoprotein 33 mg/dL; Potassium 3.7 mmol/L (3.5-5.1); Protein, Total 7.8 g/dL (6.4-8.2); Sodium Level 138 mmol/L (136-145); Triglycerides 174 mg/dL; Very Low Density Lipoprotein 35 mg/dL (5-40)
== END ==
PROVIDERS: PCP Family Medicine; Referring Provider Family Medicine; Visit Provider Family Medicine
DX: R73.02 Impaired glucose tolerance (oral) (principal); I10 Essential (primary) hypertension; E78.00 Pure hypercholesterolemia, unspecified
CPT/HCPCS: 36415; 80053; 80061; 81001; 83036; 85025

== ENCOUNTER → 2021-02-14 10:19 | Outpatient (CLI) | payer MEDICARE, SELFPAY ==
--- NOTE | 2021-02-14 11:10 | STRESSREP_ITS ---
Stress Test Report Date: 02-14-2021 Procedure: Exercise tolerance test Indications: Dyspnea on exertion; COVID-19 Consent: Per the patient Procedure: The patient exercised on a Diego protocol for 7-minute completing Stage II and 1 minute of Stage III achieving a peak heart rate of 144 bpm (100% predicted maximal heart rate) with a peak blood pressure 170/68 mmHg and a peak MET capacity of approximately 9 MET's. The baseline ECG demonstrated normal sinus rhythm. The peak exercise ECG demonstrated no obvious ECG changes. There was an occasional PVC pretest, during exercise, and recovery. The functional capacity was considered good. The patient had no complaint of chest discomfort during exercise or recovery. The examination was discontinued secondary to dyspnea. Impression: 1. Technically adequate (percent predicted maximal heart rate greater than 85%) exercise tolerance test 2. Peak exercise ECG with no obvious ECG changes 3. There was an occasional PVC pretest, during exercise, and recovery This note was generated with [employer] software. It may contain incorrect words, spelling, and punctuation that were not noted in checking the note before signing.
== END ==
PROVIDERS: PCP Family Medicine; Referring Provider Internal Medicine Pulmonary Disease; Visit Provider Internal Medicine Pulmonary Disease
DX: R06.00 Dyspnea, unspecified (principal)
CPT/HCPCS: 93017

== ENCOUNTER → 2021-03-01 14:40 | Outpatient (CLI) | payer MEDICARE, SELFPAY ==
--- NOTE | 2021-03-01 14:44 | CT_ITS ---
STUDY: CT CHEST WITHOUT CONTRAST- LOW DOSE SCREENING PROTOCOL REASON FOR EXAM: Male, 75 years old. Former smoker. Quit smoking less than 1 year ago. 57 pack per year history. No current symptoms of lung cancer or pulmonary infection. Shared decision-making with referring PCP documented in patient''s record. RADIATION DOSAGE (If Supplied By Facility): CTDIvol = ( 3.02 ) mGy, DLP = ( 104.20 ) mGycm TECHNIQUE: Low dose screening CT examination performed from the base of the neck to the upper abdomen. Sagittal and coronal reformatted images performed. Sagittal and coronal MIP images provided. The measurements provided are average, rounded measurements per ACR guidelines. COMPARISON: 02/11/2020 FINDINGS: Mild emphysema. No change in a 4 mm noncalcified nodule in the subpleural right middle lobe of the lungs on image 55 consistent with a subpleural scar. No change in the 4 mm noncalcified nodule subpleural right lower lobe volumes consistent with a noncalcified granuloma or scar. No new noncalcified nodule or mass. There is no demonstrated pleural abnormality. Normal heart and pericardium. There are calcifications of the coronary arteries. Normal mediastinum. Normal hilar regions. Normal unenhanced pulmonary arteries. Normal aorta arch and descending thoracic aorta. Normal osseous structures. There is no demonstrated abnormality of the visualized upper abdomen. CT/Low Dose CT Lung Screening IMPRESSION: 1. No significant indeterminate incidental findings requiring additional imaging. 2. Incidental findings include mild emphysema and scarring. ASSESSMENT CATEGORY: LungRADS 1 - Negative. Continue annual screening with LDCT in 12 months, per established ACR guidelines. Electronically Signed: Jose Mcginnis MD at 17:58 EST Tel , Service support ,
== END ==
PROVIDERS: PCP Family Medicine; Referring Provider Internal Medicine Pulmonary Disease; Visit Provider Internal Medicine Pulmonary Disease
DX: Z87.891 Personal history of nicotine dependence (principal)
CPT/HCPCS: 71271

== ENCOUNTER 2021-05-08 08:22 | Outpatient (CLI) | payer MEDICARE, SELFPAY ==
[2021-05-08 08:27] LABS: Bacteria 0 SEEN /hpf (None Seen); Mucous, Urine 0 SEEN /hpf (<or=2+); Squamous Epithelial Cells - UA 0 SEEN /hpf (0-5); White Blood Cells 0 SEEN /hpf (0-5)
[2021-05-08 10:30] LABS: Color, Urine Yellow (Yellow); Glucose, Dipstick Normal (Normal); Ketone-Dipstick Negative (Negative); Leukocyte Esterase-Dipstick Negative /ul (Negative); Nitrite-Dipstick Negative (Negative); Occult Blood-Urine 10 /ul (Negative); Protein-Dipstick Negative (Negative); Urine Bilirubin Dipstick Negative (Negative); Urine Clarity Clear (Clear); Urine Urobilinogen Normal (Normal)
[2021-05-08 10:31] LABS: Absolute Lymphocyte Count 1.72 X10^3/uL (0.83-4.51); Absolute Neutrophil Count 4.2 X10^3/uL (2.0-7.7); Basophil# 0.06 X10^3/uL; Basophil% 0.8 % (0-1); Eosinophil# 0.39 X10^3/uL; Eosinophils% 5.4 % (0-5); Hematocrit 41.7 % (40-54); Hemoglobin 13.6 g/dL (13.0-16.5); Lymphocyte # 1.72 X10^3/ul (0.83-4.51); Lymphocyte % 23.6 % (19-41); Mean Corp Hgb Conc 32.6 g/dL (32-36); Mean Corpuscular Hgb 30.5 pg (27.0-32.0); Mean Corpuscular Volume 93.5 fL (80-94); Mean Platelet Vol. 9.5 fl (6.2-12.0); Monocyte# 0.87 X10^3/uL; NRBC Flagged by Analyzer 0 % (0-5); Neutrophil # 4.19 X10^3/uL (2.7-7.7); Neutrophil % 57.5 % (47-70); Platelet Count 264 K/mm3 (150-450); RBC Distribution Width CV 13.4 % (11.6-14.6); RBC Distribution Width SD 45.8 fl (35.1-43.9); Red Blood Count 4.46 M/mm3 (4.6-6.2); White Blood Count 7.3 K/mm3 (4.4-11.0)
[2021-05-08 10:40] LABS: Red Blood Cells-Urine 0-5 SEEN /hpf (0-5)
[2021-05-08 10:52] LABS: ALB/GLOB Ratio 0.9 RATIO (0.9-2.4); AST(SGOT) 29 U/L (15-37); Alanine Aminotransfer ALT/SGPT 35 U/L (16-61); Albumin, Serum 3.6 g/dL (3.2-5.0); Alkaline Phosphatase 70 U/L (45-117); Anion Gap 3 (5-15); BUN 15 mg/dL (7-18); BUN/Creat Ratio 12.7 RATIO (10-20); Chloride 106 mmol/L (98-107); Cholesterol 119 mg/dL (200); Creatinine, Serum 1.18 mg/dL (0.70-1.30); EST Glomerular Filtration Rate 64 mL/min (>60); Est Glom Filt Rate - Afr Amer 77 mL/min (>60); Globulin 3.8 g/dL (2.2-4.2); Glucose 105 mg/dL (74-106); High Density Lipoprotein 34 mg/dL; PSA,Total - Annual Screen 1.06 ng/mL (0.00-4.00); Potassium 3.8 mmol/L (3.5-5.1); Protein, Total 7.4 g/dL (6.4-8.2); Sodium Level 139 mmol/L (136-145); Triglycerides 238 mg/dL; Very Low Density Lipoprotein 48 mg/dL (5-40)
== END 2021-05-08 23:59 | disposition home or self-care (01) ==
LOC: MFPLAB 08:24
PROVIDERS: PCP Family Medicine; Visit Provider Family Medicine
DX: E78.00 Pure hypercholesterolemia, unspecified (principal); I10 Essential (primary) hypertension; Z12.5 Encounter for screening for malignant neoplasm of prostate
CPT/HCPCS: 36415; 80053; 80061; 81001; 83036; 84153; 85025; G0103

== ENCOUNTER → 2021-07-21 | Outpatient (CLI) | payer MEDICARE, SELFPAY ==
--- NOTE | 2021-07-21 13:22 | RAD_ITS ---
INDICATION: PAIN EXAMINATION/TECHNIQUE: X-RAY - LEFT XR Shoulder Min 2 Views 4 VIEWS COMPARISON: None. FINDINGS: SOFT TISSUES: No soft tissue swelling or gas. No radiopaque foreign body. BONES/JOINTS: No acute fracture or subluxation.. Normal alignment. Preservation of the joint spaces. No sclerotic or destructive changes observed. RAD/Shoulder min 2 Views IMPRESSION: No significant arthropathy. Electronically Signed: Chaitanya Espinosa MD at 21:16 EDT ,
== END | disposition home or self-care (01) ==
LOC: MTRAD 13:21
PROVIDERS: PCP Family Medicine; Referring Provider Family Medicine; Visit Provider Family Medicine
DX: M25.512 Pain in left shoulder (principal)
CPT/HCPCS: 73030

== ENCOUNTER 2021-08-31 08:00 | Outpatient (RCR) | payer MEDICARE, SELFPAY ==
--- NOTE | 2021-08-11 08:54 | HP.PTEVAL ---
Patient's Visit Information GIULIANA LUDWIG is a 75 year old M referred to Physical Therapy by Dr. Des Johnson MD with a diagnosis of lt shoulder pain. Date of Evaluation: 08/11/21 Physical Therapist: Roslyn Crowder - Visit Plan Frequency: 2x /Week Duration: 4 Weeks Plan: Begin with gentle stretch/strengthening exercises; progressing weight and complexity of movement as pt symptoms decrease. - Subjective Mar 2020 was out shoveling snow, noticed left shoulder was sore afterwards. Aches every now and then since that date. Hurts when he puts pressure on LH bicep tendon. The past couple days, he notices soreness up through his upper trap up through his neck. He cannot recall anything that may have caused the pain to increase. At worst, pain is 7/10 (usually in the morning before he gets in moving). At best, pain is 2/10. Denies use of OTC pain medication. Pt reports that his fingers sometimes tingle/go numb in the left hand (like when his hand has been sitting on the steering wheel while driving) but that this has been going on for several years. He has tried ice/heat, which provides some relief but does not take the pain completely away. X-rays were done 2 wks ago, which were negative. Pt is retired, but hobbies include making maple syrup, splitting firewood, gardening. - Pain L shoulder Pain Intensity (Out of 10): 4 Pain Intensity Range: 2, 7 - Objective Posture: rounded shoulders, left shoulder sits lower than right. Pt is left handed. B UE AROM WNL. limited cervical spine R SB due to tight musculature. MMT: R UE 5/5. L shoulder flexion 4/5*, with arm supinated 4/5*, extension 5/5, IR 4/5*, ER 5/5, abduction 4/5. B elbow/hand/wrist 5/5. *paiinful - Balance/Special Test Scores Quick DASH Score: 27.2725 - Goals Goal 1:: Pt to be I with HEP Goal Time Frame: 2 Weeks Goal 2:: Pt to report L shoulder pain no greater than 2/10. Goal Time Frame: 2-4 Weeks Goal 3:: Pt to demonstrate pain free resisted shoulder flexion/abduction. Goal Time Frame: 4-6 Weeks Goal 4:: Pt to improve score on Quick DASH, indicating increased participation in desired activities Goal Time Frame: 4-6 Weeks - Rehabilitation Potential Physical Therapy Diagnosis: Pt presents with s/s consistent with left shoulder pain with probable bicep tendon involvement. Pt presents with pain over LH biceps tendon upon palpation and increased pain with lifting, increased use resulting in decreased participation in hobbies and desired activities. Rehabilitation Potential: Excellent - Anticipated Interventions Patient/Client Instruction: Educate patient on: Condition, Plan of Care For the Purpose of:: To decrease pain Therapeutic Exercise to Include: Strength training, Postural training, Active ROM For the Purpose of:: To decrease pain, To increase tolerance to activity/condition/position Cryotherapy (ice pack, ice massage): Yes - as needed Thermo therapy (hot pack): Yes - as needed For the Purpose of:: To decrease pain Thank you for the opportunity to evaluate your patient. For Medicare and Medicare HMO plans, please review the plan of care and approve it. It will need to be FAXED BACK to us at [phone] for Medicare purposes. For Medicare only, by signing this I certify the plan of care. Please let me know if there are questions or concerns regarding this plan of care. Physician Signature: Date:
--- NOTE | 2021-08-31 08:31 | HP.PTDCSUM ---
It has been my pleasure to treat GIULIANA LUDWIG referred by Dr. Des Johnson MD, with the diagnosis of Left Shoulder Pain for a total of 7 visit(s). Discharge Date: Please see the following information for a summary of their discharge status. Subjective: Patient reports that his shoulder is doing pretty good- its better than it was a month it. The shoulder is not really painful any more. It does not stop him from doing anything. Does not wake him up but minor pain when he sleeps on that side. Left Hand Dominate. L shoulder Pain Intensity (Out of 10): 4 % Improvement: 85 Objective/Function: Posture: fair throughout re-assessment. Pt is left handed. B UE AROM WNL. Cervical Spine: WFL Palpation: not tender to touch. Strength: Scap: fair plus, Shoulder: 4+/5 throughout, Elbow: 4+/5, Wrist: 5/5 Refrigeration Specialist: WFL Goal 1:: Pt to be I with HEP Goal Progress: Goal Met Goal 2:: Pt to report L shoulder pain no greater than 2/10. Goal Progress: Goal Met Goal 3:: Pt to demonstrate pain free resisted shoulder flexion/abduction. Goal Progress: Goal Met Goal 4:: Pt to improve score on Quick DASH, indicating increased participation in desired activities Goal Progress: Goal Met Plan: Discharge to I HEP- given print out of previous exercises with BTB If there are questions or concerns regarding this patient's physical therapy, please feel free to call me at [phone]. Thank you for the referral of this patient. Sincerely, Angelika Tovar, DPT Balance/Gait/Functional tests - Balance/Special Test Scores Quick DASH Score: 11.3623
== END 2021-08-31 09:00 | disposition home or self-care (01) ==
LOC: PT 08:00
PROVIDERS: PCP Family Medicine; Referring Provider Family Medicine; Visit Provider Family Medicine
DX: M25.519 Pain in unspecified shoulder (principal)
CPT/HCPCS: 97110; 97161; 97164

== ENCOUNTER → 2021-11-17 | Outpatient (CLI) | payer MEDICARE, SELFPAY ==
[2021-11-17 08:23] LABS: Bacteria 0 SEEN /hpf (None Seen); Mucous, Urine 0 SEEN /hpf (<or=2+); Red Blood Cells-Urine 0 SEEN /hpf (0-5); Squamous Epithelial Cells - UA 0 SEEN /hpf (0-5); White Blood Cells 0 SEEN /hpf (0-5)
[2021-11-17 10:02] LABS: Color, Urine Yellow (Yellow); Glucose, Dipstick Normal (Normal); Ketone-Dipstick Negative (Negative); Leukocyte Esterase-Dipstick Negative /ul (Negative); Nitrite-Dipstick Negative (Negative); Occult Blood-Urine Negative /ul (Negative); Protein-Dipstick Negative (Negative); Urine Bilirubin Dipstick Negative (Negative); Urine Clarity Clear (Clear); Urine Urobilinogen Normal (Normal)
[2021-11-17 10:03] LABS: Absolute Lymphocyte Count 1.74 X10^3/uL (0.83-4.51); Absolute Neutrophil Count 4.7 X10^3/uL (2.0-7.7); Basophil# 0.07 X10^3/uL; Basophil% 0.9 % (0-1); Eosinophil# 0.42 X10^3/uL; Eosinophils% 5.3 % (0-5); Hematocrit 42.3 % (40-54); Hemoglobin 13.8 g/dL (13.0-16.5); Lymphocyte # 1.74 X10^3/ul (0.83-4.51); Lymphocyte % 22.1 % (19-41); Mean Corp Hgb Conc 32.6 g/dL (32-36); Mean Corpuscular Hgb 30.8 pg (27.0-32.0); Mean Corpuscular Volume 94.4 fL (80-94); Mean Platelet Vol. 9.5 fl (6.2-12.0); Monocyte# 0.88 X10^3/uL; Monocyte% 11.2 % (0-10); NRBC Flagged by Analyzer 0 % (0-5); Neutrophil # 4.72 X10^3/uL (2.7-7.7); Platelet Count 281 K/mm3 (150-450); RBC Distribution Width CV 13.3 % (11.6-14.6); RBC Distribution Width SD 46.3 fl (35.1-43.9); Red Blood Count 4.48 M/mm3 (4.6-6.2); White Blood Count 7.9 K/mm3 (4.4-11.0)
[2021-11-17 10:17] LABS: Vitamin D,25 Hydroxy 39.5 ng/mL
[2021-11-17 10:38] LABS: ALB/GLOB Ratio 0.9 RATIO (0.9-2.4); AST(SGOT) 20 U/L (15-37); Alanine Aminotransfer ALT/SGPT 30 U/L (16-61); Albumin, Serum 3.8 g/dL (3.2-5.0); Alkaline Phosphatase 72 U/L (45-117); Anion Gap 8 (5-15); BUN 18 mg/dL (7-18); BUN/Creat Ratio 15.3 RATIO (10-20); Calcium,Total 9.6 mg/dL (8.5-10.1); Chloride 103 mmol/L (98-107); Cholesterol 112 mg/dL (200); Creatinine, Serum 1.18 mg/dL (0.70-1.30); EST Glomerular Filtration Rate 64 mL/min (>60); Est Glom Filt Rate - Afr Amer 77 mL/min (>60); Globulin 4.4 g/dL (2.2-4.2); Glucose 103 mg/dL (74-106); High Density Lipoprotein 55 mg/dL; Protein, Total 8.2 g/dL (6.4-8.2); Sodium Level 139 mmol/L (136-145); Triglycerides 202 mg/dL; Very Low Density Lipoprotein 40 mg/dL (5-40)
[2021-11-17 13:07] LABS: Hemoglobin A1c 6.3 % (3.8-5.6)
== END | disposition home or self-care (01) ==
LOC: MFPLAB 08:18
PROVIDERS: PCP Family Medicine; Referring Provider Family Medicine; Visit Provider Family Medicine
DX: I10 Essential (primary) hypertension (principal); R73.02 Impaired glucose tolerance (oral); E78.00 Pure hypercholesterolemia, unspecified; E55.9 Vitamin D deficiency, unspecified
CPT/HCPCS: 36415; 80053; 80061; 81001; 82306; 83036; 85025

== ENCOUNTER → 2022-02-19 | Outpatient (CLI) | payer MEDICARE, SELFPAY ==
[2022-02-19 09:00] LABS: Bacteria 0 SEEN /hpf (None Seen); Mucous, Urine 0 SEEN /hpf (<or=2+); White Blood Cells 0 SEEN /hpf (0-5)
[2022-02-19 09:56] LABS: Absolute Lymphocyte Count 1.78 X10^3/uL (0.83-4.51); Absolute Neutrophil Count 4.6 X10^3/uL (2.0-7.7); Basophil# 0.05 X10^3/uL; Basophil% 0.6 % (0-1); Eosinophil# 0.56 X10^3/uL; Eosinophils% 7.1 % (0-5); Hematocrit 42.8 % (40-54); Hemoglobin 13.9 g/dL (13.0-16.5); Lymphocyte # 1.78 X10^3/ul (0.83-4.51); Lymphocyte % 22.5 % (19-41); Mean Corp Hgb Conc 32.5 g/dL (32-36); Mean Corpuscular Hgb 30.8 pg (27.0-32.0); Mean Corpuscular Volume 94.7 fL (80-94); Mean Platelet Vol. 9.6 fl (6.2-12.0); Monocyte# 0.89 X10^3/uL; Monocyte% 11.2 % (0-10); NRBC Flagged by Analyzer 0 % (0-5); Neutrophil % 58.1 % (47-70); Platelet Count 265 K/mm3 (150-450); RBC Distribution Width CV 13.2 % (11.6-14.6); RBC Distribution Width SD 45.8 fl (35.1-43.9); Red Blood Count 4.52 M/mm3 (4.6-6.2); White Blood Count 7.9 K/mm3 (4.4-11.0)
[2022-02-19 10:00] LABS: Color, Urine Yellow (Yellow); Glucose, Dipstick Normal (Normal); Ketone-Dipstick Negative (Negative); Leukocyte Esterase-Dipstick Negative /ul (Negative); Nitrite-Dipstick Negative (Negative); Occult Blood-Urine 10 /ul (Negative); Protein-Dipstick Negative (Negative); Urine Bilirubin Dipstick Negative (Negative); Urine Clarity Clear (Clear); Urine Urobilinogen Normal (Normal)
[2022-02-19 10:07] LABS: Red Blood Cells-Urine 0-5 SEEN /hpf (0-5); Squamous Epithelial Cells - UA 0-5 SEEN /hpf (0-5)
[2022-02-19 10:13] LABS: Hemoglobin A1c 6.3 % (3.8-5.6); Vitamin D,25 Hydroxy 29.7 ng/mL
[2022-02-19 10:14] LABS: AST(SGOT) 23 U/L (15-37); Alanine Aminotransfer ALT/SGPT 35 U/L (16-61); Albumin, Serum 3.8 g/dL (3.2-5.0); Alkaline Phosphatase 76 U/L (45-117); Anion Gap 7 (5-15); BUN 18 mg/dL (7-18); Chloride 105 mmol/L (98-107); Cholesterol 122 mg/dL (200); EST Glomerular Filtration Rate 77 mL/min (>60); Est Glom Filt Rate - Afr Amer 93 mL/min (>60); Glucose 107 mg/dL (74-106); High Density Lipoprotein 37 mg/dL; Potassium 3.8 mmol/L (3.5-5.1); Protein, Total 7.8 g/dL (6.4-8.2); Sodium Level 139 mmol/L (136-145); Triglycerides 199 mg/dL; Very Low Density Lipoprotein 40 mg/dL (5-40)
== END | disposition home or self-care (01) ==
LOC: MFPLAB 08:12
PROVIDERS: PCP Family Medicine; Visit Provider Family Medicine
DX: E55.9 Vitamin D deficiency, unspecified (principal); E78.00 Pure hypercholesterolemia, unspecified; I10 Essential (primary) hypertension; R73.02 Impaired glucose tolerance (oral)
CPT/HCPCS: 36415; 80053; 80061; 81001; 82306; 83036; 85025

== ENCOUNTER → 2022-05-18 | Outpatient (CLI) | payer MEDICARE, SELFPAY ==
[2022-05-18 10:05] LABS: Absolute Lymphocyte Count 1.65 X10^3/uL (0.83-4.51); Absolute Neutrophil Count 5.9 X10^3/uL (2.0-7.7); Basophil# 0.06 X10^3/uL; Basophil% 0.6 % (0-1); Eosinophil# 0.66 X10^3/uL; Hematocrit 41.9 % (40-54); Hemoglobin 13.5 g/dL (13.0-16.5); Lymphocyte # 1.65 X10^3/ul (0.83-4.51); Lymphocyte % 17.5 % (19-41); Mean Corp Hgb Conc 32.2 g/dL (32-36); Mean Corpuscular Hgb 30.5 pg (27.0-32.0); Mean Corpuscular Volume 94.8 fL (80-94); Mean Platelet Vol. 8.9 fl (6.2-12.0); Monocyte# 1.13 X10^3/uL; NRBC Flagged by Analyzer 0 % (0-5); Neutrophil # 5.86 X10^3/uL (2.7-7.7); Neutrophil % 61.9 % (47-70); Platelet Count 299 K/mm3 (150-450); RBC Distribution Width SD 45.4 fl (35.1-43.9); Red Blood Count 4.42 M/mm3 (4.6-6.2); White Blood Count 9.5 K/mm3 (4.4-11.0)
[2022-05-18 10:33] LABS: ALB/GLOB Ratio 0.8 RATIO (0.9-2.4); AST(SGOT) 19 U/L (15-37); Alanine Aminotransfer ALT/SGPT 23 U/L (16-61); Albumin, Serum 3.5 g/dL (3.2-5.0); Alkaline Phosphatase 82 U/L (45-117); Anion Gap 9 (5-15); BUN 22 mg/dL (7-18); Calcium,Total 9.3 mg/dL (8.5-10.1); Chloride 101 mmol/L (98-107); Cholesterol 96 mg/dL (200); Creatinine, Serum 1.22 mg/dL (0.70-1.30); EST Glomerular Filtration Rate 61 mL/min (>60); Est Glom Filt Rate - Afr Amer 74 mL/min (>60); Globulin 4.2 g/dL (2.2-4.2); Glucose 97 mg/dL (74-106); High Density Lipoprotein 33 mg/dL; Protein, Total 7.7 g/dL (6.4-8.2); Sodium Level 138 mmol/L (136-145); Triglycerides 169 mg/dL; Very Low Density Lipoprotein 34 mg/dL (5-40)
[2022-05-18 10:36] LABS: Vitamin D,25 Hydroxy 40.9 ng/mL
== END | disposition home or self-care (01) ==
LOC: MFPLAB 08:54
PROVIDERS: PCP Family Medicine; Referring Provider Family Medicine; Visit Provider Family Medicine
DX: I10 Essential (primary) hypertension (principal); E55.9 Vitamin D deficiency, unspecified; R73.02 Impaired glucose tolerance (oral); E78.00 Pure hypercholesterolemia, unspecified
CPT/HCPCS: 36415; 80053; 80061; 82306; 83036; 85025

== ENCOUNTER → 2022-09-12 | Outpatient (CLI) | payer MEDICARE, SELFPAY ==
[2022-09-12 10:12] LABS: Absolute Lymphocyte Count 1.81 X10^3/uL (0.83-4.51); Absolute Neutrophil Count 3.6 X10^3/uL (2.0-7.7); Basophil# 0.05 X10^3/uL; Basophil% 0.8 % (0-1); Eosinophils% 7.5 % (0-5); Hematocrit 42.1 % (40-54); Hemoglobin 14.2 g/dL (13.0-16.5); Lymphocyte # 1.81 X10^3/ul (0.83-4.51); Lymphocyte % 27.2 % (19-41); Mean Corp Hgb Conc 33.7 g/dL (32-36); Mean Corpuscular Hgb 31.6 pg (27.0-32.0); Mean Corpuscular Volume 93.6 fL (80-94); Mean Platelet Vol. 9.5 fl (6.2-12.0); Monocyte# 0.64 X10^3/uL; Monocyte% 9.6 % (0-10); NRBC Flagged by Analyzer 0 % (0-5); Neutrophil # 3.62 X10^3/uL (2.7-7.7); Neutrophil % 54.4 % (47-70); Platelet Count 249 K/mm3 (150-450); RBC Distribution Width CV 13.1 % (11.6-14.6); RBC Distribution Width SD 44.8 fl (35.1-43.9); White Blood Count 6.7 K/mm3 (4.4-11.0)
[2022-09-12 10:41] LABS: Vitamin D,25 Hydroxy 52.4 ng/mL
[2022-09-12 10:53] LABS: ALB/GLOB Ratio 0.9 RATIO (0.9-2.4); AST(SGOT) 21 U/L (15-37); Alanine Aminotransfer ALT/SGPT 23 U/L (16-61); Albumin, Serum 3.7 g/dL (3.2-5.0); Alkaline Phosphatase 74 U/L (45-117); Anion Gap 6 (5-15); BUN 21 mg/dL (7-18); BUN/Creat Ratio 18.8 RATIO (10-20); Calcium,Total 9.2 mg/dL (8.5-10.1); Chloride 105 mmol/L (98-107); Cholesterol 107 mg/dL (200); Creatinine, Serum 1.12 mg/dL (0.70-1.30); EST Glomerular Filtration Rate 67 mL/min (>60); Est Glom Filt Rate - Afr Amer 82 mL/min (>60); Globulin 4.3 g/dL (2.2-4.2); Glucose 109 mg/dL (74-106); High Density Lipoprotein 36 mg/dL; Potassium 4.1 mmol/L (3.5-5.1); Sodium Level 138 mmol/L (136-145); Triglycerides 199 mg/dL; Very Low Density Lipoprotein 40 mg/dL (5-40)
== END | disposition home or self-care (01) ==
LOC: MFPLAB 08:12
PROVIDERS: PCP Family Medicine; Visit Provider Family Medicine
DX: R73.02 Impaired glucose tolerance (oral) (principal); I10 Essential (primary) hypertension; E55.9 Vitamin D deficiency, unspecified; E78.1 Pure hyperglyceridemia
CPT/HCPCS: 36415; 80053; 80061; 82306; 83036; 85025

== ENCOUNTER → 2023-03-22 | Outpatient (CLI) | payer MEDICARE, SELFPAY ==
[2023-03-22 08:37] LABS: Bacteria 0 SEEN /hpf (None Seen); Mucous, Urine 0 SEEN /hpf (<or=2+); Red Blood Cells-Urine 0 SEEN /hpf (0-5); Squamous Epithelial Cells - UA 0 SEEN /hpf (0-5); White Blood Cells 0 SEEN /hpf (0-5)
--- OUTSIDE RECORDS SUMMARY | 2023-03-22 08:53 | XMS RPT_ITS | CCD ---
Author Name Unknown Address [address] [place] [address] Organization [facility] Care Team Providers Care Air Support Operations Operator Name Role Phone Estrada Benitez MD Primary Care Provider Medications Completed/Discontinued Medications Medication Drug Class(es) Dates Sig (Normalized) Sig (Original) aspirin 81 mg delayed release oral tablet (1 source) Platelet Aggregation Inhibitor, Nonsteroidal Anti-inflammatory Drug take 1 tablet by mouth once daily aspirin, enteric coated (ASPIRIN, ENTERIC COATED) 81 mg EC tablet Take 81 mg by mouth once daily. 0 Active Problems Active Problems Problem Classification Problem Date Documented Date Episodic/Chronic Disorders of lipid metabolism (1 source) Mixed hyperlipidemia; Translations: [Mixed hyperlipidemia] Onset: 04-30-2012 08-09-2015 Chronic Esophageal disorders (1 source) Gastroesophageal reflux disease; Translations: [Gastro-esophageal reflux disease without esophagitis] Onset: 12-31-2019 12-31-2019 Chronic Essential hypertension (1 source) Essential hypertension; Translations: [Essential (primary) hypertension] Onset: 04-30-2012 10-03-2018 Chronic Past or Other Problems Problem Classification Problem Date Documented Da te Episodic/Chronic Allergic reactions (2 sources) Solar degeneration; Translations: [Other skin changes due to chronic exposure to nonionizing radiation] Onset: 11-23-2012 11-23-2012 Episodic Diabetes mellitus without complication (1 source) Hyperglycemia; Translations: [Hyperglycemia, unspecified] Onset: 10-03-2018 10-03-2018 Episodic Other inflammatory condition of skin (1 source) Seborrheic dermatitis; Translations: [Other seborrheic dermatitis] Onset: 11-23-2012 11-23-2012 Episodic Other skin disorders (1 source) Scar; Translations: [Scar conditions and fibrosis of skin] Onset: 11-23-2012 11-23-2012 Episodic Other skin disorders (1 source) Inflamed seborrheic keratosis; Translations: [Inflamed seborrheic keratosis] Onset: 10-02-2013 10-02-2013 Episodic Encounters Encounter Date Encounter Type Care Provider Facility Start: 02-14-2022 ambulatory Kerrie Connell PRN.CNP Work Phone: Family Practice Plan of Treatment Date Care Activity Detail Author Start: 11-02-2022 DIABETES SCREEN DIABETES SCREEN [facility] Start: 03-04-2022 ADVANCE DIRECTIVE DISCUSSION ADVANCE DIRECTIVE DISCUSSION [facility] Start: 03-04-2022 DEPRESSION ASSESSMENT DEPRESSION ASS ESSMENT [facility] Start: 11-02-2021 Influenza vaccination INFLUENZA (#1) [facility] Start: 03-03-2021 ANNUAL PCP TEAM STOCK CLERK SHANNAN DISEASE VISIT ANNUAL PCP TEAM CHRONIC DISEASE VISIT [facility] Start: 01-08-2013 SHINGRIX VACCINE (2 of 3) DREW GRIX VACCINE (2 of 3) [facility] Start: 08-23-1963 Urine microalbumin profile DTAP,TDAP ,TD (1 - Tdap) [facility] Start: 1962 BP CONTROLLED (<130/80) BP CONTROLLE D (<130/80) [facility] Start: 02-21-1945 COVID-19 VACCINE (#1) COVID-19 VACCI NE (#1) [facility] Immunizations Immunization Date Immunization Notes Care Provider Yemi welsh 11-03-2019 influenza, high-dose , quadrivalent vaccine (FLUZONE HIGH DOSE QUADRIVALENT) Kerrie Austin APRN.GENNY Work Phone: [facility] 12-06-2017 influenza, high dose seasonal, preservative-free Kerrie Jose D PLANNING AND ANALYSIS MANAGER.PLASTIC PRESS MOLDER Work Phone: [facility] 01-25-2017 influenza, high dose seasonal, preservative-free Kerrie Jose D PLANNING AND ANALYSIS MANAGER.PLASTIC PRESS MOLDER Work Phone: [facility] 02-09-2016 influenza, high dose seasonal, preservative-free Kerrie Jose D PLANNING AND ANALYSIS MANAGER.PLASTIC PRESS MOLDER Work Phone: [facility] 02-09-2015 pneumococcal conjuga te vaccine, 13 valent Kerrie Jose D PLANNING AND ANALYSIS MANAGER.PLASTIC PRESS MOLDER Work Phone: [facility] Work Phone: 01-05-2015 influenza, high dose seasonal, preservative-free Kerrie Jose D PLANNING AND ANALYSIS MANAGER.PLASTIC PRESS MOLDER Work Phone: [facility] 12-21-2013 influenza, seasonal, injectable Kerrie Jose D PLANNING AND ANALYSIS MANAGER.PLASTIC PRESS MOLDER Work Phone: [facility] 11-13-2012 zoster vaccine, live Kerrie A skins PLANNING AND ANALYSIS MANAGER.PLASTIC PRESS MOLDER Work Phone: [facility] 09-13-2009 pneumococcal polysaccharide vaccine, 23 valent Kerrie Jose D PLANNING AND ANALYSIS MANAGER.PLASTIC PRESS MOLDER Work Phone: [facility] Social History Date Type Detail Facility Start: 12-31-2019 Tobacco smoking stat us AKIS Ex-smoker [facility] Work Phone: History of tobacco use Current smoker [facility] Work Phone: History of tobacco use Cigar Smoker [facility] Work Phone: Start: 12-31-2019 Tobacco use and exposure Smoke less tobacco non-user [facility] Work Phone: Start: 12-31-2019 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) [facility] Start: 12-24-2019 End: 03-02-2020 History SDOH Alcohol Frequency 2 [facility] Start: 12-24-2019 History SDOH Alcohol Binge 1 [facility] Start: 12-24-2019 History SDOH Social Connections Get Together 4 [facility] Start: 12-24-2019 History SDOH Social Connections Protestant 3 [facility] Start: 12-24-2019 Education 17 [facility] Start: 11-20-2016 Tobacco Comment 3-4 cigars per week [facility] Start: 07-24-2006 Alcohol Comment quit [facility] Start: 1945 Sex Assigned At Male [facility] Progress note 03-01-2022 Note Date & Type Note Facility 03-01-2022 Note HNO ID: [id number] Author: Kim Pastor Service: ? Author Type: ? Type: Progress Notes Filed: 03/01/2022 11:06 AM Note Text: 2nd attempt, no answer, could not leave voicemail [facility] History of Present illness Narrative 03-01-2022 Kim Pastor - 03/01/2022 11:05 AM ESTApolonia Multani - 02/20/2022 11:36 AM Stan Austin APRN.CNP - 02/14/2022 11:49 AM EST Note Date & Type Note Facility 03-01-2022 History of Presen t illness Narrative 2nd attempt, no answer, could not leave voicemail 1st attempt. LVM trying to schedule 40 minute follow up with PCP. Thank you. Apolonia Multani Patient is overdue for a visit with PCP. If he has transferred care elsewhere, please remove Dr. Benitez's name from the chart. If he plans on maintaining care with him, please schedule 40 minute appointment with him ERNESTO. Kerrie Austin APRN.CNP documented in this encounter [facility] Progress note 02-20-2022 Note Date & Type Note Facility 02-20-2022 Note HNO ID: [id number] Author: Apolonia Multani Service: ? Author Type: ? Type: Progress Notes Filed: 03/01/2022 11:06 AM Note Text: 1st attempt. LVM trying to schedule 40 minute follow up with PCP. Thank you. Apolonia Multani [facility] 02-14-2022 Note Date & Type Note Facility 02-14-2022 Note Patient Outreach (FP WADS) GIULIANA LUDWIG ([id number]) 1945 M Date Time Provider Department 02/14/22 KERRIE AUSTIN During your visit today, we recorded the following information about you: Kerrie Austin APRN.CNP 03/01/2022 11:06 AM Signed Patient is overdue for a visit with PCP. If he has transferred care elsewhere, please remove Dr. Benitez's name from the chart. If he plans on maintaining care with him, please schedule 40 minute appointment with him ERNESTO. RANDY Wyatt 03/01/2022 11:06 AM Signed 1st attempt. LVM trying to schedule 40 minute follow up with PCP. Thank you. Apolonia Multani Kim Pastor 03/01/2022 11:06 AM Signed 2nd attempt, no answer, could not leave voicemail Allergies As of Date: 02/14/2022 (No Known Allergies) Date Reviewed: 12/31/2019 Reviewed by: Daisy Holliday - Fully Assessed Prescriptions as of 03/01/2022 - buPROPion SR (WELLBUTRIN SR) 150 mg 12 hr tablet Take 1 tablet by mouth twice daily. - omega-3 acid ethyl esters (LOVAZA) 1 gram capsule Take 3 capsules by mouth once daily. - rosuvastatin (CRESTOR) 40 mg tablet TAKE 1/2 TABLET EVERY DAY - losartan-hydrochlorothiazide (HYZAAR) 100-25 mg per tablet TAKE 1 TABLET EVERY DAY - ergocalciferol, vitamin D2, (VITAMIN D2 ORAL) once daily. - aspirin, enteric coated (ASPIRIN, ENTERIC COATED) 81 mg EC tablet Take 81 mg by mouth once daily. 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] 09/20/2006 10/03/2018 XEROSIS///SEBACEOUS GLAND DIS NEC [L73.8] 09/20/2006 10/03/2018 Actinic Keratoses (Premalignant AK's) [L57.0] 10/24/2009 10/03/2018 Neoplasm of Uncertain Behavior(NUB): R/O BCC [D*10/24/2009 10/03/2018 Solar Lentigines [L81.4] 10/24/2009 10/03/2018 Seborrheic Keratoses [L82.1] 10/24/2009 10/03/2018 Actinic Damage///Sun-Damaged Skin [L57.8] 10/24/2009 10/03/2018 Melanocytic Nevi of trunk: Junctional and Carver*02/06/2011 10/03/2018 History of BCC-type skin cancer of mid back (re*02/06/2011 10/03/2018 Essential hypertension [I10] 04/30/2012 Mixed hyperlipidemia [E78.2] 04/30/2012 Surgical Scars [L90.5] 11/23/2012 Actinic skin damage [L57.8] 11/23/2012 Other seborrheic dermatitis [L21.8] 11/23/2012 Irritated//Inflamed Seborrheic Keratosis [L82.0]10/02/2013 Eczematous dermatitis [L30.9] 10/02/2013 Hyperglycemia [R73.9] 10/03/2018 GERD (gastroesophageal reflux disease) [K21.9] 12/31/2019 Encounter Status:Closed by KIM PASTOR on 03/01/22 [facility] Progress note 02-14-2022 Note Date & Type Note Facility 02-14-2022 Note HNO ID: [id number] Author: Kerrie Austin APRN.GENNY Service: ? Author Type: Nurse Practitioner Type: Progress Notes Filed: 03/01/2022 11:06 AM Note Text: Patient is overdue for a visit with PCP. If he has transferred care elsewhere, please remove Dr. Benitez's name from the chart. If he plans on maintaining care with him, please schedule 40 minute appointment with him ERNESTO. eKrrie Austin APRN.GENNY [facility] History of Past illness Narrative 02-06-2011 Note Date & Type Note Facility documented as of this encounter (statuses as of 03/07/2022) [facility] Summary Purpose Family History No Family History Records Found Advance Directives No Advanced Directives Records Found Additional Source Comments (unrecognized sect ion and content) No Status Records Found INFORMATION SOURCE (unrecogn ized section and content) Source Comments (unrecognize d section and content) In the event this informatio n is protected by the Federal Confidentiality of Alcohol and Drug Abuse Patient Records regulations: The Federal rules restrict any use of the information to criminally investigate or prosecute any alcohol or drug abuse patient.[facility] Care Teams (unrecognized sec tion and content) FOR RECORDS PERTAINING TO PATIENTS WHO ARE OR HAVE BEEN ENROLLED IN A CHEMICAL DEPENDENCY/SUBSTANCEABUSE PROGRAM, SOME INFORMATION MAY BE OMITTED. This clinical summary was aggregated from multiple sources. Caution should be exercised in using it in the provision of clinical care. This summary normalizes information from multiple sources, and as a consequence, information in this document may materially change the coding, format and clinical context of patient data. In addition, data may be omitted in some cases. CLINICAL DECISIONS SHOULD BE BASED ON THE PRIMARY CLINICAL RECORDS. [facility] [employer] [facility]. provides no warranty or guarantee of the accuracy or completeness of information in this document.
[2023-03-22 10:05] LABS: Color, Urine Yellow (Yellow); Glucose, Dipstick Normal (Normal); Ketone-Dipstick 5 mg/dl (Negative); Leukocyte Esterase-Dipstick 25 /ul (Negative); Nitrite-Dipstick Negative (Negative); Occult Blood-Urine 10 /ul (Negative); Protein-Dipstick 15 mg/dl (Negative); Urine Bilirubin Dipstick Negative (Negative); Urine Clarity Clear (Clear); Urine Urobilinogen 1 mg/dl (Normal)
[2023-03-22 10:08] LABS: Absolute Lymphocyte Count 1.93 X10^3/uL (0.83-4.51); Absolute Neutrophil Count 5.5 X10^3/uL (2.0-7.7); Basophil# 0.07 X10^3/uL; Basophil% 0.8 % (0-1); Eosinophil# 0.47 X10^3/uL; Eosinophils% 5.2 % (0-5); Hematocrit 43.4 % (40-54); Lymphocyte # 1.93 X10^3/ul (0.83-4.51); Lymphocyte % 21.4 % (19-41); Mean Corp Hgb Conc 32.3 g/dL (32-36); Mean Corpuscular Hgb 30.1 pg (27.0-32.0); Mean Corpuscular Volume 93.3 fL (80-94); Mean Platelet Vol. 9.3 fl (6.2-12.0); Monocyte# 1.02 X10^3/uL; Monocyte% 11.3 % (0-10); NRBC Flagged by Analyzer 0 % (0-5); Neutrophil # 5.49 X10^3/uL (2.7-7.7); Neutrophil % 60.9 % (47-70); Platelet Count 330 K/mm3 (150-450); RBC Distribution Width CV 12.7 % (11.6-14.6); RBC Distribution Width SD 43.5 fl (35.1-43.9); Red Blood Count 4.65 M/mm3 (4.6-6.2)
[2023-03-22 10:38] LABS: Vitamin D,25 Hydroxy 49.4 ng/mL
[2023-03-22 10:44] LABS: ALB/GLOB Ratio 0.8 RATIO (0.9-2.4); AST(SGOT) 17 U/L (15-37); Alanine Aminotransfer ALT/SGPT 21 U/L (16-61); Albumin, Serum 3.7 g/dL (3.2-5.0); Alkaline Phosphatase 87 U/L (45-117); Anion Gap 5 (5-15); BUN 20 mg/dL (7-18); BUN/Creat Ratio 18.2 RATIO (10-20); Calcium,Total 9.8 mg/dL (8.5-10.1); Chloride 104 mmol/L (98-107); Cholesterol 109 mg/dL (200); EST Glomerular Filtration Rate 69 mL/min (>60); Est Glom Filt Rate - Afr Amer 83 mL/min (>60); Globulin 4.5 g/dL (2.2-4.2); Glucose 108 mg/dL (74-106); High Density Lipoprotein 37 mg/dL; Potassium 3.9 mmol/L (3.5-5.1); Protein, Total 8.2 g/dL (6.4-8.2); Sodium Level 137 mmol/L (136-145); Thyroid Stim Hormone (TSH) 2.15 uIU/mL (0.358-3.74); Triglycerides 159 mg/dL; Very Low Density Lipoprotein 32 mg/dL (5-40)
== END | disposition home or self-care (01) ==
LOC: MFPLAB 08:35
PROVIDERS: PCP Family Medicine; Visit Provider Family Medicine
DX: I10 Essential (primary) hypertension (principal); R73.02 Impaired glucose tolerance (oral); E55.9 Vitamin D deficiency, unspecified
CPT/HCPCS: 36415; 80053; 80061; 81001; 82306; 83036; 84443; 85025

== ENCOUNTER → 2023-09-17 | Outpatient (CLI) | payer MEDICARE, SELFPAY ==
[2023-09-17 08:09] LABS: Bacteria 0 SEEN /hpf (None Seen); Mucous, Urine 0 SEEN /hpf (<or=2+); Red Blood Cells-Urine 0 SEEN /hpf (0-5); Squamous Epithelial Cells - UA 0 SEEN /hpf (0-5); White Blood Cells 0 SEEN /hpf (0-5)
[2023-09-17 10:09] LABS: Absolute Lymphocyte Count 1.89 X10^3/uL (0.83-4.51); Basophil# 0.07 X10^3/uL; Eosinophil# 0.51 X10^3/uL; Hematocrit 41.9 % (40-54); Hemoglobin 13.7 g/dL (13.0-16.5); Lymphocyte # 1.89 X10^3/ul (0.83-4.51); Lymphocyte % 26.1 % (19-41); Mean Corp Hgb Conc 32.7 g/dL (32-36); Mean Corpuscular Hgb 30.1 pg (27.0-32.0); Mean Corpuscular Volume 92.1 fL (80-94); Mean Platelet Vol. 9.6 fl (6.2-12.0); Monocyte# 0.79 X10^3/uL; Monocyte% 10.9 % (0-10); NRBC Flagged by Analyzer 0 % (0-5); Neutrophil # 3.96 X10^3/uL (2.7-7.7); Neutrophil % 54.7 % (47-70); Platelet Count 272 K/mm3 (150-450); RBC Distribution Width CV 12.6 % (11.6-14.6); RBC Distribution Width SD 42.8 fl (35.1-43.9); Red Blood Count 4.55 M/mm3 (4.6-6.2); White Blood Count 7.2 K/mm3 (4.4-11.0)
[2023-09-17 10:10] LABS: Color, Urine Yellow (Yellow); Glucose, Dipstick Normal (Normal); Ketone-Dipstick Negative (Negative); Leukocyte Esterase-Dipstick Negative /ul (Negative); Nitrite-Dipstick Negative (Negative); Occult Blood-Urine Negative /ul (Negative); Protein-Dipstick Negative (Negative); Urine Bilirubin Dipstick Negative (Negative); Urine Clarity Clear (Clear); Urine Urobilinogen Normal (Normal)
[2023-09-17 10:26] LABS: Vitamin D,25 Hydroxy 46.2 ng/mL
[2023-09-17 10:35] LABS: ALB/GLOB Ratio 0.9 RATIO (0.9-2.4); AST(SGOT) 24 U/L (15-37); Alanine Aminotransfer ALT/SGPT 23 U/L (16-61); Albumin, Serum 3.7 g/dL (3.2-5.0); Alkaline Phosphatase 81 U/L (45-117); Anion Gap 6 (5-15); BUN 15 mg/dL (7-18); BUN/Creat Ratio 14.2 RATIO (10-20); Calcium,Total 9.4 mg/dL (8.5-10.1); Chloride 102 mmol/L (98-107); Cholesterol 119 mg/dL (200); Creatinine, Serum 1.06 mg/dL (0.70-1.30); EST Glomerular Filtration Rate 72 mL/min (>60); Est Glom Filt Rate - Afr Amer 87 mL/min (>60); Globulin 4.2 g/dL (2.2-4.2); Glucose 101 mg/dL (74-106); High Density Lipoprotein 37 mg/dL; Magnesium 2.1 mg/dL (1.6-2.6); PSA,Total - Annual Screen 1.42 ng/mL (0.00-4.00); Potassium 3.8 mmol/L (3.5-5.1); Protein, Total 7.9 g/dL (6.4-8.2); Sodium Level 136 mmol/L (136-145); Thyroid Stim Hormone (TSH) 2.01 uIU/mL (0.358-3.74); Triglycerides 212 mg/dL; Very Low Density Lipoprotein 42 mg/dL (5-40)
[2023-09-17 13:51] LABS: Hemoglobin A1c 5.7 % (3.8-5.6)
== END | disposition home or self-care (01) ==
LOC: MFPLAB 08:07
PROVIDERS: PCP Family Medicine; Visit Provider Family Medicine
DX: I10 Essential (primary) hypertension (principal); E55.9 Vitamin D deficiency, unspecified; R73.02 Impaired glucose tolerance (oral); Z12.5 Encounter for screening for malignant neoplasm of prostate
CPT/HCPCS: 36415; 80053; 80061; 81001; 82306; 83036; 83735; 84153; 84443; 85025; G0103

== ENCOUNTER → 2024-02-11 | Outpatient (CLI) | payer MEDICARE, SELFPAY ==
[2024-02-11 08:26] LABS: Mucous, Urine 0 SEEN /hpf (<or=2+)
[2024-02-11 10:09] LABS: Absolute Lymphocyte Count 1.68 X10^3/uL (0.83-4.51); Absolute Neutrophil Count 3.9 X10^3/uL (2.0-7.7); Basophil# 0.07 X10^3/uL; Eosinophil# 0.46 X10^3/uL; Eosinophils% 6.6 % (0-5); Hemoglobin 13.8 g/dL (13.0-16.5); Lymphocyte # 1.68 X10^3/ul (0.83-4.51); Lymphocyte % 24.2 % (19-41); Mean Corp Hgb Conc 32.9 g/dL (32-36); Mean Corpuscular Hgb 30.8 pg (27.0-32.0); Mean Corpuscular Volume 93.8 fL (80-94); Mean Platelet Vol. 9.3 fl (6.2-12.0); Monocyte# 0.75 X10^3/uL; Monocyte% 10.8 % (0-10); NRBC Flagged by Analyzer 0 % (0-5); Neutrophil # 3.94 X10^3/uL (2.7-7.7); Neutrophil % 56.7 % (47-70); Platelet Count 309 K/mm3 (150-450); RBC Distribution Width CV 12.6 % (11.6-14.6); RBC Distribution Width SD 43.2 fl (35.1-43.9); Red Blood Count 4.48 M/mm3 (4.6-6.2)
[2024-02-11 10:13] LABS: Color, Urine Straw (Yellow); Glucose, Dipstick Normal (Normal); Ketone-Dipstick Negative (Negative); Leukocyte Esterase-Dipstick 25 /ul (Negative); Nitrite-Dipstick Negative (Negative); Occult Blood-Urine 10 /ul (Negative); Protein-Dipstick 15 mg/dl (Negative); Urine Bilirubin Dipstick Negative (Negative); Urine Clarity Clear (Clear); Urine Urobilinogen Normal (Normal)
[2024-02-11 10:28] LABS: Vitamin D,25 Hydroxy 48.9 ng/mL
[2024-02-11 10:32] LABS: Bacteria 1+ /hpf (None Seen); Red Blood Cells-Urine 0-5 SEEN /hpf (0-5); Squamous Epithelial Cells - UA 0-5 SEEN /hpf (0-5); White Blood Cells 0-5 SEEN /hpf (0-5)
[2024-02-11 11:10] LABS: ALB/GLOB Ratio 0.9 RATIO (0.9-2.4); AST(SGOT) 21 U/L (15-37); Alanine Aminotransfer ALT/SGPT 28 U/L (16-61); Albumin, Serum 3.6 g/dL (3.2-5.0); Alkaline Phosphatase 85 U/L (45-117); Anion Gap 7 (5-15); BUN 17 mg/dL (7-18); BUN/Creat Ratio 18.1 RATIO (10-20); Calcium,Total 9.8 mg/dL (8.5-10.1); Chloride 105 mmol/L (98-107); Cholesterol 118 mg/dL (200); Creatinine, Serum 0.94 mg/dL (0.70-1.30); EST Glomerular Filtration Rate 82 mL/min (>60); Est Glom Filt Rate - Afr Amer 99 mL/min (>60); Globulin 4.1 g/dL (2.2-4.2); Glucose 131 mg/dL (74-106); High Density Lipoprotein 39 mg/dL; Potassium 3.7 mmol/L (3.5-5.1); Protein, Total 7.7 g/dL (6.4-8.2); Sodium Level 139 mmol/L (136-145); Triglycerides 209 mg/dL; Very Low Density Lipoprotein 42 mg/dL (5-40)
== END | disposition home or self-care (01) ==
LOC: MFPLAB 08:15
PROVIDERS: PCP Family Medicine; Visit Provider Family Medicine
DX: I10 Essential (primary) hypertension (principal); E78.00 Pure hypercholesterolemia, unspecified; E55.9 Vitamin D deficiency, unspecified; R73.02 Impaired glucose tolerance (oral)
CPT/HCPCS: 36415; 80053; 80061; 81001; 82306; 83036; 83735; 85025

== ENCOUNTER → 2024-06-12 | Outpatient (CLI) | payer MEDICARE, SELFPAY ==
[2024-06-12 08:33] LABS: Bacteria 0 SEEN /hpf (None Seen); Mucous, Urine 0 SEEN /hpf (<or=2+); Red Blood Cells-Urine 0 SEEN /hpf (0-5); Squamous Epithelial Cells - UA 0 SEEN /hpf (0-5); White Blood Cells 0 SEEN /hpf (0-5)
[2024-06-12 10:27] LABS: Absolute Lymphocyte Count 1.79 X10^3/uL (0.83-4.51); Basophil# 0.06 X10^3/uL; Basophil% 0.9 % (0-1); Eosinophil# 0.47 X10^3/uL; Eosinophils% 6.7 % (0-5); Hematocrit 41.4 % (40-54); Hemoglobin 13.7 g/dL (13.0-16.5); Lymphocyte # 1.79 X10^3/ul (0.83-4.51); Lymphocyte % 25.5 % (19-41); Mean Corp Hgb Conc 33.1 g/dL (32-36); Mean Corpuscular Hgb 30.6 pg (27.0-32.0); Mean Corpuscular Volume 92.4 fL (80-94); Mean Platelet Vol. 9.3 fl (6.2-12.0); Monocyte# 0.68 X10^3/uL; Monocyte% 9.7 % (0-10); NRBC Flagged by Analyzer 0 % (0-5); Neutrophil # 3.98 X10^3/uL (2.7-7.7); Neutrophil % 56.6 % (47-70); Platelet Count 302 K/mm3 (150-450); RBC Distribution Width CV 12.8 % (11.6-14.6); RBC Distribution Width SD 43.3 fl (35.1-43.9); Red Blood Count 4.48 M/mm3 (4.6-6.2)
[2024-06-12 10:33] LABS: Color, Urine Yellow (Yellow); Glucose, Dipstick Normal (Normal); Ketone-Dipstick Negative (Negative); Leukocyte Esterase-Dipstick Negative /ul (Negative); Nitrite-Dipstick Negative (Negative); Occult Blood-Urine Negative /ul (Negative); Protein-Dipstick Negative (Negative); Urine Bilirubin Dipstick Negative (Negative); Urine Clarity Clear (Clear); Urine Urobilinogen Normal (Normal)
[2024-06-12 10:53] LABS: Hemoglobin A1c 6.3 % (<=5.6)
[2024-06-12 11:10] LABS: ALB/GLOB Ratio 1.2 RATIO (0.9-2.4); AST(SGOT) 20 U/L (<=37); Alanine Aminotransfer ALT/SGPT 13 U/L (<=46); Albumin, Serum 4.2 g/dL (3.4-4.8); Alkaline Phosphatase 84 U/L (40-129); Anion Gap 12 (5-15); BUN 17 mg/dL (4-19); BUN/Creat Ratio 16.4 RATIO (10-20); Carbon Dioxide 25.9 mmol/L (21.0-32.0); Chloride 101 mmol/L (98-108); Cholesterol 105 mg/dL (<=200); Creatinine, Serum 1.06 mg/dL (0.70-1.20); EST Glomerular Filtration Rate 71 (>60); Globulin 3.4 g/dL (2.2-4.2); Glucose 100 mg/dL (70-99); High Density Lipoprotein 34 mg/dL; Low Density Lipoprotein Calc. 41 mg/dL; Potassium 3.9 mmol/L (3.3-5.1); Protein, Total 7.6 g/dL (5.9-8.4); Sodium Level 139 mmol/L (133-145); Total Bilirubin 0.29 mg/dL (0.00-1.30); Triglycerides 152 mg/dL; Very Low Density Lipoprotein 30 mg/dL (5-40); Vitamin D,25 Hydroxy 35.8 ng/mL (30-100); cholesterol:hdl ratio screen 3.09
== END | disposition home or self-care (01) ==
LOC: MFPLAB 08:30
PROVIDERS: PCP Family Medicine; Referring Provider Family Medicine; Visit Provider Family Medicine
DX: E78.00 Pure hypercholesterolemia, unspecified (principal); I10 Essential (primary) hypertension; R73.02 Impaired glucose tolerance (oral); E55.9 Vitamin D deficiency, unspecified
CPT/HCPCS: 36415; 80053; 80061; 81001; 82306; 83036; 83735; 85025

== ENCOUNTER → 2024-07-10 | Outpatient (CLI) | payer MEDICARE, SELFPAY ==
--- NOTE | 2024-07-10 14:50 | CT_ITS ---
PROCEDURE: LOW DOSE CT LUNG SCREENING 07/10/2024 REASON FOR EXAM: PERSONAL HISTORY OF NICOTINE DEPENDENCE Former smoker. Patient has smoked 1 pack per day for 61 years. TECHNIQUE: Low Dose CT Lung screening without contrast. Coronal and Sagittal reconstruction series were provided. One or more dose reduction techniques were used (e.g., Automated exposure control, adjustment of the mA and/or kV according to patient size, use of iterative reconstruction technique). REFERENCE LINK: [facility] Lung-RADS RADIATION DOSE SUMMARY: CTDlvol: 3.02 mGy DLP: 97.04 mGycm COMPARISON: Comparison is made with prior examination dated March 01, 2021. FINDINGS: PULMONARY NODULES: (Only nodules >3mm are reported) Nodules described below are on series 1 unless otherwise specified. Pulmonary Nodules: No suspicious nodules seen. Hardware:None Lymph Nodes:Small benign-appearing mediastinal lymph nodes. Heart and Vasculature:Coronary artery calcifications are noted.Atherosclerotic calcifications of the thoracic aorta. Thoracic aorta and pulmonary arteries have normal contours; noncontrast technique limits evaluation. Coronary Artery Calcifications: Present Lungs and Airways: Mild emphysematous changes are present. Pleura:Unremarkable Upper Abdomen:Unremarkable Bones:Degenerative changes of the thoracic spine. CT/Low Dose CT Lung Screening IMPRESSION: No suspicious nodules are seen. Coronary artery calcification (CAC) is is present Lung-RADS Category: 2 BENIGN (BASED ON IMAGING FEATURES OR INDOLENT BEHAVIOR). RECOMMEND 12-MONTH SCREENING LDCT. Other Significant Findings: None. Reading Location: [id number]
== END | disposition home or self-care (01) ==
LOC: CT 14:47
PROVIDERS: PCP Family Medicine; Referring Provider Internal Medicine Pulmonary Disease; Visit Provider Internal Medicine Pulmonary Disease
DX: Z12.2 Encounter for screening for malignant neoplasm of respiratory organs (principal); Z87.891 Personal history of nicotine dependence
CPT/HCPCS: 71271

== ENCOUNTER → 2024-09-25 | Outpatient (CLI) | payer MEDICARE, SELFPAY ==
[2024-09-25 09:58] LABS: Hematocrit 41.8 % (40-54); Hemoglobin 13.9 g/dL (13.0-16.5); Immature Granulocytes Count 0.040 X10^3/uL (0.0-0.0); Mean Corp Hgb Conc 33.3 g/dL (32-36); Mean Corpuscular Volume 92.9 fL (80-94); Mean Platelet Vol. 9.5 fl (6.2-12.0); NRBC Flagged by Analyzer 0 % (0-5); Platelet Count 263 K/mm3 (150-450); RBC Distribution Width CV 13.1 % (11.6-14.6); RBC Distribution Width SD 44.7 fl (35.1-43.9); Red Blood Count 4.50 M/mm3 (4.6-6.2); White Blood Count 8.4 K/mm3 (4.4-11.0)
[2024-09-25 10:49] LABS: AST(SGOT) 24 U/L (<=37); Alanine Aminotransfer ALT/SGPT 17 U/L (<=46); Albumin, Serum 4.5 g/dL (3.4-4.8); Alkaline Phosphatase 73 U/L (40-129); Anion Gap 12 (5-15); BUN 16 mg/dL (4-19); BUN/Creat Ratio 15.9 RATIO (10-20); Calcium,Total 9.9 mg/dL (7.6-11.0); Carbon Dioxide 26.2 mmol/L (21.0-32.0); Chloride 101 mmol/L (98-108); Cholesterol 123 mg/dL (<=200); Globulin 3.4 g/dL (2.2-4.2); Glucose 100 mg/dL (70-99); Low Density Lipoprotein Calc. 51 mg/dL; Potassium 4.1 mmol/L (3.3-5.1); Triglycerides 191 mg/dL; Very Low Density Lipoprotein 38 mg/dL (5-40); cholesterol:hdl ratio screen 3.64
== END | disposition home or self-care (01) ==
LOC: MFPLAB 08:12
PROVIDERS: PCP Family Medicine; Referring Provider Family Medicine; Visit Provider Family Medicine
DX: I10 Essential (primary) hypertension (principal); R73.02 Impaired glucose tolerance (oral); E78.00 Pure hypercholesterolemia, unspecified
CPT/HCPCS: 36415; 80053; 80061; 83036; 85025

== ENCOUNTER → 2024-10-02 | Outpatient (CLI) | payer MEDICARE, SELFPAY ==
[2024-10-02 14:22] LABS: PSA,Total - Annual Screen 1.25 ng/mL (0.02-4.00)
== END | disposition home or self-care (01) ==
LOC: MFPLAB 10:55
PROVIDERS: PCP Family Medicine; Visit Provider Family Medicine
DX: Z12.5 Encounter for screening for malignant neoplasm of prostate (principal)
CPT/HCPCS: 36415; 84153; G0103

== ENCOUNTER → 2025-01-22 | Outpatient (CLI) | payer MEDICARE, SELFPAY ==
[2025-01-22 18:01] LABS: Creatinine, Urine (random) 81.00 mg/dL (39.00-259.00); Microalbumin,Random Urine 14.2 mg/L (<20 mg/L)
== END | disposition home or self-care (01) ==
LOC: LABSPEC 16:29
PROVIDERS: PCP Family Medicine; Visit Provider Family Medicine
DX: I10 Essential (primary) hypertension (principal)
CPT/HCPCS: 82043; 82570